=== PATIENT | female | born 1990 | race Caucasian/White ===

== ENCOUNTER 2017-05-14 11:24 | Outpatient (CLI) | payer BC ==
--- NOTE | 2017-05-14 13:08 | Progress Note ---
Progress Note Date of Service May 14, 2017. Progress Note Outpatient note 27 F P2002 at 34.6 weeks seen in office today with normal visit and found to have irregular contractions. Sent over for monitoring. Cervix is 1-2/40/-3/ posterior/firm. FHT Cat 1. contractions are every 3-4 irregular. No bleeding or leakage of fluid. No history of recent trauma or falls. No history of any labor with other pregnancies. Will give Brethine 0.25 mg Sub-Q to try and stop contractions.
[2017-05-14] MEDS ORDERED: TERBUTALINE SULFATE 1 MG/ML VIAL ONE (13:10)
[2017-05-14] MEDS ORDERED: TERBUTALINE SULFATE 1 MG/ML VIAL SQ PRN (13:15)
--- NOTE | 2017-05-14 14:12 | Progress Note ---
Progress Note Date of Service May 14, 2017. Progress Note no further contractions will discharge home not in labor FHT Cat 1 follow up in office
== END 2017-05-14 14:20 | disposition home or self-care (01) ==
LOC: C.LD 11:24 → C.OPB 11:24
PROVIDERS: ATTEND Obstetrics & Gynecology
DX: O62.9 Abnormality of forces of labor, unspecified (principal); Z3A.34 34 weeks gestation of pregnancy

== ENCOUNTER 2017-06-05 13:48 | Outpatient (CLI) | payer BC ==
[~2017-06-05] VITALS: Ht 154.9 cm; Wt 96.2 kg
--- NOTE | 2017-06-05 14:45 | Progress Note ---
Progress Note Date of Service Jun 05, 2017. Progress Note Pt seen and evaluated for dec FM EGA 38 + week NST is CAT1 ot is reassured and disch home with instructions
--- NOTE | 2017-06-05 14:47 | Discharge Instructions ---
Discharge Instructions Date of Service Jun 05, 2017. Admission Reason for Admission: Mucus Discharge,Cramping Discharge Discharge Diagnosis / Problem: decrease movement Discharge Goals Goal(s): Continuing OB care Activity Recommendations Activity Limitations: as noted below SPECIAL CARE INSTRUCTIONS: Call Doctor if: * Regular contractions every 5 minutes or greater than contractions in one hour. * Bleeding * Water breaks or is leaking * Decreased movement * Fever >100.4 degrees F * Pain not relieved by routine measures or pain medication ordered. FOLLOW UP VISIT: Return to Labor and Delivery on for /call for appointment time . Follow-up Visit with: When: . Current Hospital Diet Patient's current hospital diet: Discharge Diet Recommended Diet: Regular Diet Pending Studies Studies pending at discharge: no Medical Emergencies . Who to Call and When: Medical Emergencies: If at any time you feel your situation is an emergency, please call 911 immediately. . Non-Emergent Contact Non-Emergency issues call your: Specialist . . "Provider Documentation" section prepared by Bubba Esteban. .
[2017-06-05 15:26] VITALS: Ht 154.9 cm; Wt 96.2 kg
[2017-06-05] MEDS ORDERED: PRENTAB26 PO (15:26)
[2017-06-05] MEDS ORDERED: POTA8CAP6 PO (15:26)
== END 2017-06-05 14:48 | disposition home or self-care (01) ==
LOC: C.OPB 13:48 → C.LD 13:49 → C.OPB 14:48
PROVIDERS: ATTEND Obstetrics & Gynecology
DX: O36.8130 Decreased fetal movements, third trimester, not applicable or unspecified (principal); O26.893 Other specified pregnancy related conditions, third trimester; N89.8 Other specified noninflammatory disorders of vagina; Z3A.38 38 weeks gestation of pregnancy

== ENCOUNTER 2019-09-05 19:42 | Observation (INO) ==
[2019-09-05] MEDS ORDERED: ONDANSETRON INJ 2 MG/ML 2 ML VIAL IV PRN (20:11)
[2019-09-05] MEDS ORDERED: LACTATED RINGER'S 1,000 ML IV ONE (20:11)
[2019-09-05] MEDS ORDERED: OXYTOCIN 30 UNITS/500 ML BAG IV PRN (20:11)
[2019-09-05] MEDS ORDERED: LACTATED RINGER'S 1,000 ML IV PRN ×2 (20:11)
[2019-09-05] MEDS ORDERED: BETAMETH SOD PHOS/ACETATE IA 6 MG/ML IM STA (20:14)
[2019-09-05] MEDS ORDERED: NIFEdipine 10 MG CAP PO STA ×2 (20:14→21:49)
--- NOTE | 2019-09-05 20:29 | History & Physical Report ---
Date of Service September 05, 2019 Assessment & Plan (1) uterine contractions in third trimester, antepartum: 29 yo at 34.2 wks with contractions and cervical dilatation and effacement VSS Afebrile FHR reassuring Discussed with her and aviation electrical technician in the room and possibility of going into active labor and baby might be transferred to [facility] [place] She desires to be transferred now before she would go into active labor Plan observe, monitor, IVF bolus, Procardia PO now, Celestone and transfer to [facility] Discussed with Dr Mock, manager distribution OB at [facility] L&D Accepted transfer (2) Type 2 diabetes mellitus affecting in second trimester, antepartum: History of Present Illness Primary Care Provider: Willie Newsomep Patient is a 29 yo at 34.2 wks who has been feeling contractions since 09/02 They stopped yesterday and started this afternoon They have been getting more regular and painful, every 3-4 min No LOF/VB +FM's No VB/LOF/ Vaginal d/c, itching No fever/ chills/ N&V/ Dysuria/ problems with BM Her has been complicated by 1) Pre existing Type II DM, on insulin and Metformin 2) Class II Obesity 3) Smoker 4) h/o C section Allergies Allergy/AdvReac Type Severity Reaction Status Date / Time No Known Allergies Allergy Unverified 06/05/17 15:24 Home Medications Home Medications Medication Instructions Recorded Confirmed Type Multivit/Min/Iron/Fol Ac/Pren 1 tab PO DAILY #0 tab 06/05/17 History ( Vitamin) Potassium Chloride (Klor-Con Ext 8 meq PO DAILY #0 cap 06/05/17 History Rel) Patient History Social History Preferred Language: Maltese marital status: Feels Safe at Home: Yes Safety Concerns: Feels Safe At This Time Smoking Status: Current every day smoker Tobacco Type: cigarettes ; Cigarettes Per Day: 10 ; Do You Dip or Chew Tobacco: No ; Second Hand Exposure: Yes ; Hx Alcohol Use: No Hx Substance Use: No OB History 2012: JOCELYN JUDGE 2013: JOCELYN JUDGE 2017: SAB 2018: Primary Csecton for breech GLOBAL COORDINATOR History No h/o STD's Review of Systems All systems reviewed & are unremarkable except as noted in HPI & below Physical Exam Constitutional: WD/WN, vitals as above well developed, well nourished, + acute distress (uncomfortable with ctxs) and + obese Gastrointestinal (Abdomen): Abd: soft, ctxs every 2-3 min Genitourinary: normal external appearance OB Exam Abdomen: + regular contractions Manual OB Exam: + cervical dilation (2-3 cm) 2 cm, + cervical effacement 80% and + station -2 OB Exam Monitor Tracing: + external FHT monitor used and + category I Results & Data Vital Signs (Past 12 Hours) Vital Signs Pulse BP 09/05/19 20:14 75 136/73
[2019-09-05 20:37] LABS: Basophils # (auto) 0.02 K/uL (0-0.2); Basophils % (auto) 0.1 %; Eosinophils # (auto) 0.08 K/uL (0-0.5); Eosinophils % (auto) 0.5 %; Hematocrit (blood only) 35.1 % (37-47); Hemoglobin 12.3 g/dL (12.0-16.0); Immature Granulocytes # (auto) 0.05 K/uL (0.00-0.02); Immature Granulocytes % (auto) 0.3 %; Lymphocytes # (auto) 3.19 K/uL (1.2-3.4); Lymphocytes % (auto) 20.5 %; Mean Corpuscular Hemoglobin 30.1 pg (25-34); Mean Platelet Volume 11.3 fL (7.4-10.4); Monocytes # (auto) 0.84 K/uL (0.11-0.59); Monocytes % (auto) 5.4 %; Neutrophils # (auto) 11.41 K/uL (1.4-6.5); Neutrophils % (auto) 73.2 %; Platelet Count 200 K/uL (130-400); RDW Coefficient of Variation 13.5 % (11.5-14.5); RDW Standard Deviation 42.1 fL (36.4-46.3); Red Blood Count 4.08 M/uL (4.2-5.4); White Blood Count 15.59 K/uL (4.8-10.8)
[2019-09-05 20:46] LABS: Appearance Urine Clear (Clear); Bilirubin Urine Negative (Negative); Blood Urine Negative (Negative); Color Urine Yellow; Glucose Urine UA Negative (Negative); Ketones Urine Negative (Negative); Leukocyte Esterase Urine Negative (Negative); Nitrite Urine Negative (Negative); Protein Urine Negative (Negative); Specific Gravity Urine 1.008 (1.000-1.030); Urobilinogen Urine Negative (Negative); pH Urine 7.5 (4.5-7.5)
[2019-09-05 21:03] LABS: BUN Creatinine Ratio 12.8 (10-20); Calcium 10.6 mg/dl (8.5-10.1); Creatinine Clr Calc Pharmacy 132.9 ml/min; Est GFR (African American) 139.8; Est GFR (Non-African American) 120.6; Potassium 2.7 mmol/L (3.5-5.1)
--- NOTE | 2019-09-05 21:52 | Obstetrical Progress Note ---
Date of Service September 05, 2019 Assessment & Plan Admission and Anticipated Discharge Date Admission Date: September 05, 2019 Subjective Patient is reevaluated She feels better but still has ctxs on and off, not sure how often She received IVF bolus and 20 mg of PO Procardia and Celestone Lab Results 09/05/19 09/05/19 09/05/19 Range/Units 20:25 20:25 Unknown WBC 15.59 H (4.8-10.8) K/uL RBC 4.08 L (4.2-5.4) M/uL Hgb 12.3 (12.0-16.0) g/dL Hct 35.1 L (37-47) % MCV 86.0 (80-100) fL MCH 30.1 (25-34) pg MCHC 35.0 (32-36) g/dL RDW Std Deviation 42.1 (36.4-46.3) fL RDW Coeff of Maureen 13.5 (11.5-14.5) % Plt Count 200 (130-400) K/uL MPV 11.3 H (7.4-10.4) fL Immature Gran % (Auto) 0.3 % Neut % (Auto) 73.2 % Lymph % (Auto) 20.5 % [place] % (Auto) 5.4 % Eos % (Auto) 0.5 % Baso % (Auto) 0.1 % Immature Gran # (Auto) 0.05 H (0.00-0.02) K/uL Neut # (Auto) 11.41 H (1.4-6.5) K/uL Lymph # (Auto) 3.19 (1.2-3.4) K/uL [place] # (Auto) 0.84 H (0.11-0.59) K/uL Eos # (Auto) 0.08 (0-0.5) K/uL Baso # (Auto) 0.02 (0-0.2) K/uL Sodium 138 (136-145) mmol/L Potassium 2.7 L (3.5-5.1) mmol/L Chloride 106 (98-107) mmol/L Carbon Dioxide 26 (21-32) mmol/L Anion Gap 6.0 (3-11) BUN 8 (7-18) mg/dl Creatinine 0.64 (0.6-1.2) mg/dl Est Cr Clr Drug Dosing 132.9 ml/min Est GFR ( Amer) 139.8 Est GFR (Non-Af Amer) 120.6 BUN/Creatinine Ratio 12.8 (10-20) Glucose 98 (70-99) mg/dl Calcium 10.6 H (8.5-10.1) mg/dl Urine Color Yellow Urine Appearance Clear (Clear) Urine pH 7.5 (4.5-7.5) Ur Specific [place] 1.008 (1.000-1.030) Urine Protein Negative (Negative) Urine Glucose (UA) Negative (Negative) Urine Ketones Negative (Negative) Urine Blood Negative (Negative) Urine Nitrite Negative (Negative) Urine Bilirubin Negative (Negative) Urine Urobilinogen Negative (Negative) Ur Leukocyte Esterase Negative (Negative) FHR 130's, reactive [place]: unable to monitor contractions Plan to repeat 1 more dose of Procardia and continue to monitor Results & Data ([facility] [place]) Vital Signs (Past 12 Hours) Vital Signs Temp Pulse Resp BP 09/05/19 21:44 87 137/74 09/05/19 21:29 85 138/74 09/05/19 21:14 88 125/60 09/05/19 20:59 76 141/75 H 09/05/19 20:45 72 138/65 09/05/19 20:14 75 136/73 09/05/19 20:10 36.9 C 75 18 136/73
--- NOTE | 2019-09-09 01:30 | Discharge Summary (DS) ---
DETAILS OF ADMISSION: The patient is a 29-year-old G5, P3-0-1-3 at 34 weeks and 2 days of gestation. She presented to labor and delivery with contractions and cervical dilatation and effacement. She was having contractions for the last few hours and they were getting more intense and painful. When she presented to labor and delivery, her cervix was 2-3 cm dilated, 80% effaced, -3 station. She was having regular contractions which were painful. She was started on IV fluid bolus and p.o. Procardia. Her contractions slowed down. She was given one dose of Celestone and the canal lock tender chief operator instructional technology coordinator discussed the risks of labor here and possibility of transferring to NICU. She wanted to be transferred to tertiary care center, [facility]. Transfer was arranged through [facility]. On the discharge, her cervix was unchanged, her contractions were minimal, and heart rate was reassuring. She was transferred with an ambulance with her nurse on 09/05/2019 evening. TE
== END 2019-09-05 23:05 | disposition short-term general hospital (02) ==
LOC: OPB 19:42 → 4S2 19:42 → 4S1 19:43 → 4S2 20:02

== ENCOUNTER 2020-07-12 13:44 | Inpatient (IN) ==
[2020-07-12] MEDS ORDERED: ONDANSETRON INJ 2 MG/ML 2 ML VIAL IV STA (14:21)
[2020-07-12] MEDS ORDERED: SODIUM CHLORIDE 0.9% 1000ML 1,000 ML IV STA (14:21)
[2020-07-12] MEDS ORDERED: ACETAMINOPHEN 1,000 MG/100 ML VIAL IV STA (14:21)
--- NOTE | 2020-07-12 14:34 | Emergency Department Note ---
Impression & Plan Left flank pain, Hydronephrosis, Hypokalemia, Hypomagnesemia, ED Provider Note CHIEF COMPLAINT: Left flank pain HISTORY OF PRESENTING ILLNESS: This is a 30-year-old female who presents to the emergency department by private vehicle with complaint of left flank pain that started last night and got progressively worse today. Patient states the pain starts in her left middle back and radiates around to the front of her stomach. Pain is constant, sharp and stabbing, and she rates the pain 10/10. She took Tylenol last night with minimal relief of the pain. Patient is currently 30 weeks , she is G5, P4. She went to see her [employer] today and they checked to make sure she was not in labor. They sent her here to be evaluated for possible kidney stone. Patient denies any history of kidney stones. She does not know anything about her family history because she was adopted. She notes some urinary pressure, but denies any dysuria, urinary frequency or hesitancy, or hematuria. She denies any fevers or chills. She has had some associated nausea and vomiting. She denies chest pain, chest tightness, shortness of breath, dizziness or syncope. She is feeling the baby move normally. She denies any vaginal bleeding or discharge. REVIEW OF SYSTEMS: A complete 10 point review of systems was reviewed with the patient with pertinent positives and negatives as per history of present illness. All else were negative. PAST MEDICAL HISTORY: Type 2 diabetes SOCIAL HISTORY: Lives at home, she is a current every day smoker ALLERGIES: No known allergies PHYSICAL EXAM: CONSTITUTIONAL: Pleasant and cooperative. Nontoxic-appearing and in no acute distress, but appears uncomfortable from pain. Mildly dehydrated, but otherwise well appearing and well nourished. HEENT: Normocephalic, atraumatic. Pharynx normal. Tacky mucous membranes. NECK: Supple, full active range of motion without discomfort. RESPIRATORY: Clear to auscultation bilaterally with no wheezing, crackles, rhonchi or stridor. Equal expansion bilaterally. CARDIOVASCULAR: Regular rate and rhythm with no murmurs, rubs or gallops. Normal peripheral perfusion. No edema. GASTROINTESTINAL: Tender to palpation in the left mid abdomen, soft. Gravid abdomen. Bowel sounds present in all quadrants. Left-sided CVA tenderness to percussion, no right-sided CVA tenderness. MUSCULOSKELETAL: Full range of motion of all joints without discomfort. INTEGUMENTARY: No rash or other significant dermatologic conditions noted. NEUROLOGIC: Alert and oriented X 4 with normal affect. Normal strength and sen sation in all 4 extremities. Normal speech. Normal gait observed. ED COURSE AND MEDICAL DECISION MAKING: CC: Patient presenting with complaint of left flank pain DIFFERENTIAL DIAGNOSIS: Includes, but not limited to ureteral stone, UTI, pyelonephritis, premature labor, [place] Pat[place], pancreatitis, diverticulitis, small bowel obstruction, gastroenteritis, infectious colitis, dehydration, among others. INTERPRETATION OF LABS: Significant leukocytosis with left shift, mild anemia, normal platelets, hypokalemia and hypomagnesemia, no other significant electrolyte abnormalities, normal renal function, normal liver enzymes and lipase. UA shows 3+ ketones and appears contaminated with large epithelial cells though 1+ bacteria, urine culture is pending. IMAGING: RENAL ULTRASOUND CLINICAL HISTORY: left flank pain, + preg, eval stone COMPARISON STUDY: None. TECHNIQUE: Sonography of the kidneys and the urinary bladder was performed. FINDINGS: Right kidney measures 12.8 x 5.2 x 6.6 cm and the left measures 13.7 x 6.8 x 6.8 cm. There is mild to moderate left hydronephrosis. There is mild right collecting system dilatation. Note is made of a 1.7 cm left renal cyst. There is a probable 4 mm right renal calculus. Right ureteral jet was visualized. The left ureteral jet was not identified. Incidental note is made of gallstones within the gallbladder without gallbladder wall thickening. IMPRESSION: 1. Mild to moderate left hydronephrosis which may be due to to mass effect upon the ureter by the gravid uterus or occult ureteral calculus. Mild right collecting system dilatation. 2. Probable small right renal calculus. 3. Cholelithiasis. No evidence for acute cholecystitis. MEDICATION RECONCILIATION: I attest that I have personally reviewed the patient's current medication list. INITIAL VITAL SIGNS REVIEW: I reviewed the patient's initial vital signs and interpret them as follows: T: Afebrile; BP: Normotensive; HR: Mildly tachycardic; RR: Within normal limit; Pulse Ox: Within normal limits on room air. MDM SUMMARY: Patient was evaluated at bedside, history and physical exam performed. Patient is alert and oriented, in no acute distress, resting calmly in stretcher. She does appear to be uncomfortable from pain. She is tender to palpation of the left flank and left mid abdomen, no acute abdomen. She is afebrile and nontoxic-appearing, but appears mildly dehydrated clinically. Cardiac monitoring: An order was placed for continuous cardiac monitoring. The monitor shows a rate of 102 bpm with sinus tachycardia rhythm. heart tones performed, 132 bpm. The patient is feeling the baby move normally. Orders were placed for labs, UA, IV fluid bolus for hydration, IV Tylenol for pain, IV Zofran for nausea, renal ultrasound to evaluate for possible ureteral stone or kidney infection. Patient discussed with Dr. Quesada, who agrees with my assessment, plan, and disposition. Labs and imaging reviewed as above, labs are concerning for significant leukocytosis with left shift, in the setting of acute flank pain and , I am worried she may have developing pyelonephritis. Urinalysis appeared somewhat contaminated though there was 1+ bacteria, a urine culture is pending. Patient was treated with 2 g IV Rocephin empirically. She was also noted to have hypokalemia, repletion was started with 20 mEq IV over 2 hours. Ultrasound did show moderate left hydronephrosis without a definite ureteral calculus seen. I spoke on the phone with Dr. Alegria [facility] [employer], who agreed that the patient should be admitted for the possible pyelonephritis. She requested that the patient be admitted to the hospitalist service and she will continue to consult for the patient's OB care. I spoke on the phone with Macarena Flores PA-C with the hospitalist group, who agreed to evaluate the patient for admission. A COVID-19 test was ordered and is negative. Patient reassessed multiple times throughout ED stay, she has remained hemodyn amically stable and afebrile, her tachycardia is downtrending with IV fluids and she reports her pain and nausea are significantly improved after the Tylenol and Zofran. The patient was updated on all results and plan for admission, all questions were answered to the best of my ability at this time and the patient was agreeable to this plan. The patient was stable at time of admission. The chart was completed utilizing re3D voice recognition software. Grammatical errors, random word insertions, pronoun errors, and incomplete sentences are an occasional consequence of this system due to software limitations, ambient noise, and hardware issues. Any formal questions or concerns about the content, text, or information contained within the body of this dictation should be directly addressed to the nurse practitioner for clarification. Past Med/Surg History Medical History (Updated 07/12/20 @ 20:26 by MADY Goodman) Diabetes mellitus, type II Gestational diabetes Obesity Surgical History History of Family History Other Family history unknown Social History Smoking Status: Smoker, status unknown Tobacco Type: Cigarettes Cigarettes Per Day: 10; Second Hand Exposure: No; Do You Dip or Chew Tobacco: No; Hx Alcohol Use: No Hx Substance Use: No Preferred Language: Italian Communication Ability: Effective Research Analyst Required: No Beliefs That Will Affect Care: None marital status: Current Living Situation: Alone and Family Other Information That Helps Us Care for You: No Feels Safe at Home: Yes Safety Concerns: Feels Safe At This Time Assistive Devices: None Allergies Allergies Allergy/AdvReac Type Severity Reaction Status Date / Time No Known Allergies Allergy Verified 07/12/20 15:21 Home Meds Home Medications Medication Instructions Recorded Confirmed vit [id number] 800 tab PO DAILY 09/05/19 07/12/20 [ Vitamin] insulin aspart U-100 [Novolog 11 unit SUBCUT .BEFORE DINNER 07/12/20 07/12/20 Flexpen U-100 Insulin] insulin glargine [Lantus Solostar 37 unit SUBCUT HS 07/12/20 07/12/20 U-100 Insulin] Results & Data (ED) Vital Signs Vital Signs - 24 hr 07/12/20 13:52 07/12/20 14:46 07/12/20 15:51 Temperature 36.4 C L Temperature Source Oral Pulse Rate 108 H 100 H Pulse Rate [Left Finger] 88 Pulse Rhythm Regular Respiratory Rate 18 20 Blood Pressure 128/79 Blood Pressure [Left Arm] 126/68 Blood Pressure Mean 95 Blood Pressure Mean [Left Arm] 87 Pulse Oximetry 97 96 Oxygen Delivery Method Room Air Room Air Room Air Sepsis Recent Fever Within 48 Hours No Sepsis New/Unexplained Change in Mental Status No Sepsis Action Taken by Nursing No Action Required Laboratory Data Result diagrams: 07/12/20 14:28 07/12/20 14:28 Lab Results 07/12/20 07/12/20 07/12/20 Range/Units 14:28 14:28 14:38 WBC 24.82 H (4.8-10.8) K/uL RBC 3.73 L (4.2-5.4) M/uL Hgb 11.6 L (12.0-16.0) g/dL Hct 31.8 L (37-47) % MCV 85.3 (80-100) fL MCH 31.1 (25-34) pg MCHC 36.5 H (32-36) g/dL RDW Std Deviation 41.7 (36.4-46.3) fL RDW Coeff of Maureen 13.5 (11.5-14.5) % Plt Count 178 (130-400) K/uL MPV 11.0 H (7.4-10.4) fL Immature Gran % (Auto) 0.3 % Neut % (Auto) 87.3 % Lymph % (Auto) 6.6 % [place] % (Auto) 5.7 % Eos % (Auto) 0.1 % Baso % (Auto) 0.0 % Neut # (Auto) 21.65 H (1.4-6.5) K/uL Lymph # (Auto) 1.64 (1.2-3.4) K/uL [place] # (Auto) 1.41 H (0.11-0.59) K/uL Eos # (Auto) 0.03 (0-0.5) K/uL Baso # (Auto) 0.01 (0-0.2) K/uL Immature Gran # (Auto) 0.08 H (0.00-0.02) K/uL Sodium 139 (136-145) mmol/L Potassium 2.7 L (3.5-5.1) mmol/L Chloride 107 (98-107) mmol/L Carbon Dioxide 23 (21-32) mmol/L Anion Gap 9.0 (3-11) BUN 10 (7-18) mg/dl Creatinine 0.86 (0.6-1.2) mg/dl Est Cr Clr Drug Dosing 95.9 ml/min Est GFR ( Amer) 105.1 Est GFR (Non-Af Amer) 90.7 BUN/Creatinine Ratio 11.8 (10-20) Glucose 84 (70-99) mg/dl Calcium 8.5 (8.5-10.1) mg/dl Magnesium 1.6 L (1.8-2.4) mg/dl Total Bilirubin 0.5 (0.2-1) mg/dl AST 13 L (15-37) U/L ALT 17 (12-78) U/L Alkaline Phosphatase 98 (45-117) U/L Total Protein 6.6 (6.4-8.2) gm/dl Albumin 2.5 L (3.4-5.0) gm/dl Globulin 4.1 H (2.5-4.0) gm/dl Albumin/Globulin Ratio 0.6 L (0.9-2) Lipase 84 (73-393) U/L Urine Color Yellow Urine Appearance Clear (Clear) Urine pH 7.0 (4.5-7.5) Ur Specific [place] 1.016 (1.000-1.030) Urine Protein Trace H (Negative) Urine Glucose (UA) Negative (Negative) Urine Ketones 3+ H (Negative) Urine Blood Trace H (Negative) Urine Nitrite Negative (Negative) Urine Bilirubin Negative (Negative) Urine Urobilinogen Negative (Negative) Ur Leukocyte Esterase Trace H (Negative) Urine WBC (Auto) 5-10 H (0-5) /hpf Urine RBC (Auto) 5-10 H (0-4) /hpf U Hyaline Cast (Auto) 1-5 (0-5) /lpf U Epithel Cells (Auto) >30 H (0-5) /lpf Urine Bacteria (Auto) 1+ H (Negative) COVID-19 Eval Order SARS-CoV-2 (PCR) (Negative) Influenza Type A (PCR) (Neg) Influenza Type B (PCR) (Neg) RSV (RT-PCR) (Neg) 07/12/20 07/12/20 Range/Units 16:34 16:34 WBC (4.8-10.8) K/uL RBC (4.2-5.4) M/uL Hgb (12.0-16.0) g/dL Hct (37-47) % MCV (80-100) fL MCH (25-34) pg MCHC (32-36) g/dL RDW Std Deviation (36.4-46.3) fL RDW Coeff of Maureen (11.5-14.5) % Plt Count (130-400) K/uL MPV (7.4-10.4) fL Immature Gran % (Auto) % Neut % (Auto) % Lymph % (Auto) % [place] % (Auto) % Eos % (Auto) % Baso % (Auto) % Neut # (Auto) (1.4-6.5) K/uL Lymph # (Auto) (1.2-3.4) K/uL [place] # (Auto) (0.11-0.59) K/uL Eos # (Auto) (0-0.5) K/uL Baso # (Auto) (0-0.2) K/uL Immature Gran # (Auto) (0.00-0.02) K/uL Sodium (136-145) mmol/L Potassium (3.5-5.1) mmol/L Chloride (98-107) mmol/L Carbon Dioxide (21-32) mmol/L Anion Gap (3-11) BUN (7-18) mg/dl Creatinine (0.6-1.2) mg/dl Est Cr Clr Drug Dosing ml/min Est GFR ( Amer) Est GFR (Non-Af Amer) BUN/Creatinine Ratio (10-20) Glucose (70-99) mg/dl Calcium (8.5-10.1) mg/dl Magnesium (1.8-2.4) mg/dl Total Bilirubin (0.2-1) mg/dl AST (15-37) U/L ALT (12-78) U/L Alkaline Phosphatase (45-117) U/L Total Protein (6.4-8.2) gm/dl Albumin (3.4-5.0) gm/dl Globulin (2.5-4.0) gm/dl Albumin/Globulin Ratio (0.9-2) Lipase (73-393) U/L Urine Color Urine Appearance (Clear) Urine pH (4.5-7.5) Ur Specific [place] (1.000-1.030) Urine Protein (Negative) Urine Glucose (UA) (Negative) Urine Ketones (Negative) Urine Blood (Negative) Urine Nitrite (Negative) Urine Bilirubin (Negative) Urine Urobilinogen (Negative) Ur Leukocyte Esterase (Negative) Urine WBC (Auto) (0-5) /hpf Urine RBC (Auto) (0-4) /hpf U Hyaline Cast (Auto) (0-5) /lpf U Epithel Cells (Auto) (0-5) /lpf Urine Bacteria (Auto) (Negative) COVID-19 Eval Order CovFluRsv at [facility] SARS-CoV-2 (PCR) NEGATIVE (Negative) Influenza Type A (PCR) Negative (Neg) Influenza Type B (PCR) Negative (Neg) RSV (RT-PCR) Negative (Neg) Administered Medications Discontinued Medications Sodium Chloride (Nss 1000ml) 1,000 mls @ 999 mls/hr IV .[id number] STA Stop: 07/12/20 15:21 Last Infusion: 07/12/20 15:19 Dose: 0 mls/hr Documented by: [id number] Admin: 07/12/20 14:38 Dose: 999 mls/hr Documented by: [id number] Acetaminophen (Ofirmev) 1,000 mg in 100 mls @ 400 mls/hr IV NOW STA Stop: 07/12/20 14:35 Last Infusion: 07/12/20 15:00 Dose: 0 mls/hr Documented by: [id number] Admin: 07/12/20 14:38 Dose: 400 mls/hr Documented by: [id number] Ceftriaxone Sodium (Rocephin) 2,000 mg in 70 mls @ 140 mls/hr IV NOW STA Stop: 07/12/20 16:09 Last Infusion: 07/12/20 16:52 Dose: 0 mls/hr Documented by: [id number] Admin: 07/12/20 16:10 Dose: 140 mls/hr Documented by: [id number] Potassium Chloride (K Valente / Wtr) 10 meq in 100 mls @ 100 mls/hr IV Q1H VÍCTOR Stop: 07/12/20 17:44 Last Infusion: 07/12/20 17:57 Dose: 0 mls/hr Documented by: [id number] Admin: 07/12/20 17:04 Dose: 100 mls/hr Documented by: [id number] Infusion: 07/12/20 17:03 Dose: 0 mls/hr Documented by: [id number] Admin: 07/12/20 16:01 Dose: 100 mls/hr Documented by: [id number] Magnesium Sulfate/Dextrose (Magnesium Sulfate / D5w) 1 gm in 100 mls @ 50 mls/hr IV ONE ONE Stop: 07/12/20 19:49 Last Admin: 07/12/20 17:58 Dose: 50 mls/hr Documented by: [id number] Ondansetron HCl (Ondansetron Inj 2 Mg/Ml 2 Ml Vial) 4 mg IV NOW STA Stop: 07/12/20 14:22 Last Admin: 07/12/20 14:38 Dose: 4 mg Documented by: [id number] Potassium Chloride (Potassium Chloride Crtab 20 Meq Tabcr) 40 meq PO NOW STA Stop: 07/12/20 17:12 Last Admin: 07/12/20 17:38 Dose: 40 meq Documented by: [id number] Imaging Data Radiologist's Impression: Renal Ultrasound 07/12/20 14:21 RENAL ULTRASOUND CLINICAL HISTORY: left flank pain, + preg, eval stone COMPARISON STUDY: None. TECHNIQUE: Sonography of the kidneys and the urinary bladder was performed. FINDINGS: Right kidney measures 12.8 x 5.2 x 6.6 cm and the left measures 13.7 x 6.8 x 6.8 cm. There is mild to moderate left hydronephrosis. There is mild right collecting system dilatation. Note is made of a 1.7 cm left renal cyst. There is a probable 4 mm right renal calculus. Right ureteral jet was visualized. The left ureteral jet was not identified. Incidental note is made of gallstones within the gallbladder without gallbladder wall thickening. IMPRESSION: 1. Mild to moderate left hydronephrosis which may be due to to mass effect upon the ureter by the gravid uterus or occult ureteral calculus. Mild right collecting system dilatation. 2. Probable small right renal calculus. 3. Cholelithiasis. No evidence for acute cholecystitis. ACT 112: Negative or not required by law. Electronically signed by: Joao Whatley M.D. 07/12/2020 3:35 PM Discharge Plan Visit Data Chief Complaint: Back Injury/Pain Stated Complaint: BACK LOWER LEFT PAIN, LEFT SIDE ABD PAIN, 30WK PRE ED Provider: Matthew Quesada ED Midlevel Provider: Miracle Culp Discharge Problem: Left flank pain, Hydronephrosis, Hypokalemia, Hypomagnesemia, Patient Disposition: Admitted As Inpatient Discharge Instructions Interventions: ED Discharge Assessment Last Done: 07/12/20 17:59 Discharge Problem: Hydronephrosis Qualifiers: Hydronephrosis type: unspecified Qualified Code(s): N13.30 - Unspecified hydr onephrosis Qualifiers: Weeks of gestation: 30 weeks Qualified Code(s): Z3A.30 - 30 weeks gestation of
[2020-07-12 14:44] LABS: Hematocrit (blood only) 31.8 % (37-47); Hemoglobin 11.6 g/dL (12.0-16.0); Mean Corpuscular Hemoglobin 31.1 pg (25-34); Mean Corpuscular Hgb Conc 36.5 g/dL (32-36); Mean Corpuscular Volume 85.3 fL (80-100); Platelet Count 178 K/uL (130-400); RDW Coefficient of Variation 13.5 % (11.5-14.5); RDW Standard Deviation 41.7 fL (36.4-46.3); Red Blood Count 3.73 M/uL (4.2-5.4); White Blood Count 24.82 K/uL (4.8-10.8)
[2020-07-12 14:59] LABS: Appearance Urine Clear (Clear); Bacteria Urine Automated 1+ (Negative); Bilirubin Urine Negative (Negative); Blood Urine Trace (Negative); Color Urine Yellow; Epithelial Cell Urine Auto >30 /lpf (0-5); Glucose Urine UA Negative (Negative); Ketones Urine 3+ (Negative); Leukocyte Esterase Urine Trace (Negative); Nitrite Urine Negative (Negative); Protein Urine Trace (Negative); Specific Gravity Urine 1.016 (1.000-1.030); Urobilinogen Urine Negative (Negative)
[2020-07-12 15:00] LABS: Albumin Level 2.5 gm/dl (3.4-5.0); BUN Creatinine Ratio 11.8 (10-20); Calcium 8.5 mg/dl (8.5-10.1); Creatinine Clr Calc Pharmacy 95.9 ml/min; Est GFR (African American) 105.1; Est GFR (Non-African American) 90.7; Potassium 2.7 mmol/L (3.5-5.1)
[2020-07-12 15:03] LABS: Albumin Globulin Ratio 0.6 (0.9-2); Bilirubin,Total 0.5 mg/dl (0.2-1); Globulin 4.1 gm/dl (2.5-4.0); Total Protein 6.6 gm/dl (6.4-8.2)
[2020-07-12 15:07] LABS: Basophils # (auto) 0.01 K/uL (0-0.2); Eosinophils # (auto) 0.03 K/uL (0-0.5); Eosinophils % (auto) 0.1 %; Immature Granulocytes # (auto) 0.08 K/uL (0.00-0.02); Immature Granulocytes % (auto) 0.3 %; Lymphocytes # (auto) 1.64 K/uL (1.2-3.4); Lymphocytes % (auto) 6.6 %; Monocytes # (auto) 1.41 K/uL (0.11-0.59); Monocytes % (auto) 5.7 %; Neutrophils # (auto) 21.65 K/uL (1.4-6.5); Neutrophils % (auto) 87.3 %
--- NOTE | 2020-07-12 15:36 | Ultrasound Report ---
RENAL ULTRASOUND CLINICAL HISTORY: left flank pain, + preg, eval stone COMPARISON STUDY: None. TECHNIQUE: Sonography of the kidneys and the urinary bladder was performed. FINDINGS: Right kidney measures 12.8 x 5.2 x 6.6 cm and the left measures 13.7 x 6.8 x 6.8 cm. There is mild to moderate left hydronephrosis. There is mild right collecting system dilatation. Note is ma de of a 1.7 cm left renal cyst. There is a probable 4 mm right renal calculus. Right ureteral jet was visualized. The left ureteral jet was not identified. Incidental note is made of gallstones within t he gallbladder without gallbladder wall thickening. IMPRESSION: 1. Mild to moderate left hydronephrosis which may be due to to mass effect upon the ureter by the gra vid uterus or occult ureteral calculus. Mild right collecting system dilatation. 2. Probable small right renal calculus. 3. Cholelithiasis. No evidence for acute cholecystitis. ACT 112: Negative or not required by law. Electronically signed by: Joao Whatley M.D. 07/12/2020 3:35 PM
[2020-07-12] MEDS ORDERED: cefTRIAXone SODIUM 2,000 MG/70 ML BAG IV STA (15:40)
[2020-07-12] MEDS: POTASSIUM CHLORIDE / WTR 10 MEQ/100 ML PLCT IV SCH ×2 (16:01→17:04)
[2020-07-12 16:51] LABS: Magnesium 1.6 mg/dl (1.8-2.4)
--- NOTE | 2020-07-12 17:01 | History & Physical Report ---
Date of Service July 12, 2020 Assessment & Plan (1) Left flank pain: (2) Hydronephrosis: Possible renal colic Possible UTI Pt is 30 y/o F with PMH DM II, obesity, currently 30 weeks gestation, presented to ER with c/o Left flank pain since last night. Nausea, one episode of vomiting. Denies fever, dysuria, hematuria, vaginal discharge/bleeding. Evaluated OBGYN outpatient prior to arrival and no signs pre-term labor In ER afebrile, WBC: 24. UA: trace blood, trace leuk esterase, 1+bacteria, >30 epithelial Renal US: Mild to moderate left hydronephrosis which may be due to to mass effect upon the ureter by the gravid uterus or occult ureteral calculus. Mild right collecting system dilatation. Probable small right renal calculus. In ER given Rocephin, zofran, IV Tylenol, 1L NSS. Pt reports no further flank pain -Urine culture, blood culture pending -Strain all urine -IVF -Rocephin -IV Tylenol prn pain -Urology consult -CBC, BMP in am (3) : 30 weeks gestation Reports sensation movement. Denies vaginal bleeding or discharge. Was evaluated outpatient OB clinic with reported no signs pre-term labor -OBGYN consult -Continue vitamin (4) Hypokalemia: K: 2.7 -In ER given 2 K riders -Replace and monitor (5) Hypomagnesemia: Magnesium: 1.6 -Replace and monitor (6) Diabetes mellitus, type II: A1c: 5.2 in 04/26/20 -Hold home insulin -Basal bolus insulin per protocol DVT Prophylaxis -SCDs Full Code as per discussion with pt Follows with Dr Tamayo for routine care Pt was seen and care coordinated with Dr Resendiz. See addendum History of Present Illness Chief Complaint: Left flank pain Primary Care Provider: Willie Tamayo Pt is 30 y/o F with PMH DM II, obesity, currently 30 weeks gestation, gestational diabetes presented to ER with c/o Left flank pain since last night. Reports sudden onset sharp left flank pain radiating to left lower abdomen last night. Had nausea and vomited once. Feels like no fully emptying bladder when urinating the past day. Was seen outpatient at [facility] and reports no signs of pre-term labor. Pt reports this pain does not feel like prior labor pains. Denies h/o kidney stones in past. No prior treatment attempted. Did not eat or drink today. Reports feeling baby move as usual. Denies any contractions. Denies fever/chills, diaphoresis, hematemesis, diarrhea, constipation, dysuria, hematu zaheer, urinary frequency or urgency, MELCHOR, dizziness, syncope, vision changes, neck pain, CP, SOB, orthopnea, palpitations, cough, sore throat, choking, otalgia, rhinorrhea, paresthesias, weakness, extremity weakness, extremity edema, rashes, vaginal bleeding or discharge. Allergies Allergy/AdvReac Type Severity Reaction Status Date / Time No Known Allergies Allergy Verified 07/12/20 15:21 Home Medications Medication Instructions Recorded Confirmed Type vit no.[id number] 800 tab PO DAILY 09/05/19 07/12/20 History [ Vitamin] insulin aspart U-100 [Novolog 11 unit SUBCUT .BEFORE DINNER 07/12/20 07/12/20 History Flexpen U-100 Insulin] insulin glargine [Lantus Solostar 37 unit SUBCUT HS 07/12/20 07/12/20 History U-100 Insulin] Past Med/Surg History Medical History (Updated 07/12/20 @ 20:26 by MADY Goodman) Diabetes mellitus, type II Gestational diabetes Obesity Surgical History History of Family History Other Family history unknown Social History Smoking Status: Smoker, status unknown Tobacco Type: Cigarettes Cigarettes Per Day: 10; Second Hand Exposure: No; Do You Dip or Chew Tobacco: No; Hx Alcohol Use: No Hx Substance Use: No Preferred Language: Polish Communication Ability: Effective Distribution Operation Supervisor Required: No Beliefs That Will Affect Care: None marital status: Current Living Situation: Alone and Family Other Information That Helps Us Care for You: No Feels Safe at Home: Yes Safety Concerns: Feels Safe At This Time Assistive Devices: None Review of Systems Review of Systems: All systems reviewed & are unremarkable except as noted in HPI & below Physical Exam Physical Exam: General: no distress, obese Head: normocephalic, atraumatic Eyes: conjunctiva non-injected, anicteric ENT: normal inspection external ears, nose, mucous membranes moist Neck: supple, trachea midline, non-tender Lungs: clear, no respiratory distress, no wheezing/rhonchi/rales CV: RRR, no murmur, no pretibial edema Abd: +gravid uterus, normal BS, mild left CVA tenderness to palpation, otherwise abdomen non-tender to palpation at this time Ext: no cyanosis, no calf tenderness Neuro: A&O x 3, no focal deficits noted, normal affect Skin: warm, dry Results & Data Results & Data ([facility]) Vital Signs (Past 12 Hours) Vital Signs Temp Pulse Pulse Resp BP BP Pulse Ox 07/12/20 15:51 88 20 126/68 96 07/12/20 14:46 100 H 07/12/20 13:52 36.4 C L 108 H 18 128/79 97 Laboratory Results Short CBC 07/12/20 Range/Units 14:28 WBC 24.82 H (4.8-10.8) K/uL Hgb 11.6 L (12.0-16.0) g/dL Hct 31.8 L (37-47) % Plt Count 178 (130-400) K/uL BMP 07/12/20 14:28 Sodium 139 Potassium 2.7 L Chloride 107 Carbon Dioxide 23 BUN 10 Creatinine 0.86 Glucose 84 Calcium 8.5 Liver Function 07/12/20 Range/Units 14:28 Total Bilirubin 0.5 (0.2-1) mg/dl AST 13 L (15-37) U/L ALT 17 (12-78) U/L Alkaline Phosphatase 98 (45-117) U/L Albumin 2.5 L (3.4-5.0) gm/dl Urine 07/12/20 Range/Units 14:38 Urine Color Yellow Urine Appearance Clear (Clear) Urine pH 7.0 (4.5-7.5) Ur Specific [place] 1.016 (1.000-1.030) Urine Protein Trace H (Negative) Urine Glucose (UA) Negative (Negative) Diagnostic Findings Renal Ultrasound 07/12/20 14:21 RENAL ULTRASOUND CLINICAL HISTORY: left flank pain, + preg, eval stone COMPARISON STUDY: None. TECHNIQUE: Sonography of the kidneys and the urinary bladder was performed. FINDINGS: Right kidney measures 12.8 x 5.2 x 6.6 cm and the left measures 13.7 x 6.8 x 6.8 cm. There is mild to moderate left hydronephrosis. There is mild right collecting system dilatation. Note is made of a 1.7 cm left renal cyst. There is a probable 4 mm right renal calculus. Right ureteral jet was visualized. The left ureteral jet was not identified. Incidental note is made of gallstones within the gallbladder without gallbladder wall thickening. IMPRESSION: 1. Mild to moderate left hydronephrosis which may be due to to mass effect upon the ureter by the gravid uterus or occult ureteral calculus. Mild right collecting system dilatation. 2. Probable small right renal calculus. 3. Cholelithiasis. No evidence for acute cholecystitis. ACT 112: Negative or not required by law. Electronically signed by: Joao Whatley M.D. 07/12/2020 3:35 PM Code Status & VTE Plan VTE Prophylaxis Plan VTE Prophylaxis will be ordered: Yes Supervising Physician Co-Signing Physician Notes Care coordinated with Ramona Flores PA-C. Agree with above note. Patient seen and examined. Please refer to her notes for full details. Vital signs reviewed. Physical exam: General exam: Alert and oriented. Not in acute distress. CVS: S1 and S2 heard, regular rate and rhythm, no murmurs. RS: Clear to auscultation, no wheezing or crackles. ABD: Soft, bowel sounds present, mild Left CVA tenderness present. POULTRY SLAUGHTERER: Nonfocal. EXT: No edema, no erythema. Labs: Reviewed. Assessment and plan: 30 F with 30week presents with left flank pain since last night. Ultrasound showing left hydronephrosis possibly from gravid uterus or occult stone. UA psoitive for UTi. empirically started on rocephin, tylenol prn for pain. replacing potassium and magnesium. Follow labs and cultures. O FORESTRY CONSULTANT consult. Other diagnosis and plan of care as per Ramona Flores PA-C. Raghu peleltier MD.
[2020-07-12] MEDS ORDERED: POTASSIUM CHLORIDE CRTAB 20 MEQ TABCR PO STA (17:11)
[2020-07-12 17:21] LABS: Influenza A virus by PCR Negative (Neg); Influenza B virus by PCR Negative (Neg); RSV by PCR Negative (Neg); SARS CoV2 RNA(COVID-19) InHosp NEGATIVE (Negative)
[2020-07-12] MEDS ORDERED: MAGNESIUM SULFATE / D5W 1 GM/100 ML BAG IV ONE (17:50)
[2020-07-12] MEDS ORDERED: CARBOHYDRATES FOR HYPOGLYCEMIA PO PRN (18:15)
[2020-07-12] MEDS ORDERED: DEXTROSE 50% 50 ML SYRINGE IV PRN (18:15)
[2020-07-12] MEDS ORDERED: GLUCOSE 40% GEL 15 GM TUBE PO PRN (18:15)
[2020-07-12] MEDS ORDERED: ONDANSETRON INJ 2 MG/ML 2 ML VIAL IV PRN (18:15)
[2020-07-12] MEDS ORDERED: GLUCAGON FOR INJ 1 MG VIAL SQ PRN (18:15)
[2020-07-12] MEDS ORDERED: GLUCOSE 10 TABS/TUBE PO PRN (18:15)
[2020-07-12] MEDS: ACETAMINOPHEN 1000 MG/100 ML IV IV PRN (20:36)
[2020-07-12] MEDS: POTASSIUM CHLORIDE 40 MEQ in SODIUM CHLORIDE 0.9% 1000ML 1,000 ML IV SCH (21:00)
[2020-07-12] MEDS: INSULIN GLARGINE SOLOSTAR 100 UNITS/ML 3 ML PEN SC SCH (21:01)
[2020-07-12] MEDS: INSULIN ASPART 100 UNITS/ML 3 ML PEN SC SCH (21:01)
[2020-07-12] MEDS ORDERED: oxyCODONE/ACETAMINOPHEN 5mg/325mg TAB PO PRN (23:48)
--- NOTE | 2020-07-12 23:55 | OB/GYN Consultation ---
Date of Consultation July 12, 2020 Assessment & Plan (1) Left flank pain: Patient is a 30-year-old -1-1-4 at 30 weeks and 6 days of gestation who was admitted with sudden onset left flank pain urine dip Was positive for blood suggesting kidney stones. She was sent from office to the ER where CVA tenderness and elevated white blood cell count noted. Admitted for empiric IV antibiotics and pain management. Vital signs stable afebrile On Rocephin IV and acetaminophen IV and p.o. Still complains of pain heart rate reassuring No signs of symptoms of labor Recommend to continue with IV antibiotic May add Percocet for pain for 1-2 days Consider changing AB to piperacillin with tazobactam and renal CT, If no improvement in pain in 24 hours Will continue to monitor FHR and contractions Thank you (2) Obesity: (3) Hydronephrosis: (4) Diabetes mellitus, type II: History of Present Illness Attending Physician: Raghu Resendiz MD History of Present Illness Patient is an 30-year-old -1-1-4 at 30 weeks and 6 days of gestation who was admitted for suspected left-sided pyelonephritis versus nephrolithiasis due to acute left flank pain which started yesterday. She went to [facility], office and ruled out labor. Her urine dip had blood in it and suspected kidney stones and she was sent to the ER for further work-up. Her white count was elevated at 24K and she has CVA tenderness and urine had some white blood cells and bacteria. Her renal ultrasound showed hydronephrosis of left kidney with no stones and right kidney showed a small stone. She was admitted for IV antibiotics empirically. She denies contractions, leakage of fluid or vaginal bleeding. She reports good movements. Her NST was reactive and tot showed no contractions. She still c/o pain. No has been complicated by 1 class II obesity 2 pre-existing type 2 diabetes, on insulin. 3 history of prior , desires . 4 history of labor, 34.3 weeks last year in September 2019. 5 smoker, half pack a day 6 family history of genetic disorder, she has a child with MS P1 7 history of abnormal EKG and cardiology evaluation in April 2020 no medication was prescribed recommended diabetes management and smoking cessation Allergies Allergy/AdvReac Type Severity Reaction Status Date / Time No Known Allergies Allergy Verified 07/12/20 15:21 Home Medications Medication Instructions Recorded Confirmed Type vit no.[id number] 800 tab PO DAILY 09/05/19 07/12/20 History [ Vitamin] insulin aspart U-100 [Novolog 11 unit SUBCUT .BEFORE DINNER 07/12/20 07/12/20 History Flexpen U-100 Insulin] insulin glargine [Lantus Solostar 37 unit SUBCUT HS 07/12/20 07/12/20 History U-100 Insulin] Patient History Medical History Diabetes mellitus, type II Gestational diabetes Obesity Surgical History History of Family History Other Family history unknown Social History Smoking Status: Smoker, status unknown Tobacco Type: Cigarettes Cigarettes Per Day: 10; Second Hand Exposure: No; Do You Dip or Chew Tobacco: No; Hx Alcohol Use: No Hx Substance Use: No Preferred Language: [place] Communication Ability: Effective Crane Assembler Required: No Beliefs That Will Affect Care: None marital status: Current Living Situation: Alone and Family Other Information That Helps Us Care for You: No Feels Safe at Home: Yes Safety Concerns: Feels Safe At This Time Assistive Devices: None Review of Systems Review of Systems: All systems reviewed & are unremarkable except as noted in HPI & below Physical Exam Constitutional: WD/WN, vitals as above well developed, well nourished and + obese She was sleeping when I entered her room, and agreed to talk to me. Upon waking up and turning around, she started to c/o Left flank pain again. Stated it comes and goes. Gastrointestinal (Abdomen): normal bowel sounds, soft, nontender, no hepatosplenomegaly (gravid, Lt CVAT) Results & Data ([facility]) Vital Signs (Past 12 Hours) Vital Signs Temp Pulse Pulse Resp BP BP Pulse Ox 07/12/20 18:21 37.0 C 98 H 16 117/65 97 07/12/20 18:17 37.0 C 98 H 18 117/65 97 07/12/20 17:59 96 H 18 143/64 H 98 07/12/20 17:58 95 H 18 143/64 H 98 07/12/20 17:05 112 H 18 145/79 H 96 07/12/20 15:51 88 20 126/68 96 07/12/20 14:46 100 H 07/12/20 13:52 36.4 C L 108 H 18 128/79 97 Laboratory Results Lab Results 07/12/20 07/12/20 07/12/20 Range/Units 14:28 14:28 14:38 WBC 24.82 H (4.8-10.8) K/uL RBC 3.73 L (4.2-5.4) M/uL Hgb 11.6 L (12.0-16.0) g/dL Hct 31.8 L (37-47) % MCV 85.3 (80-100) fL MCH 31.1 (25-34) pg MCHC 36.5 H (32-36) g/dL RDW Std Deviation 41.7 (36.4-46.3) fL RDW Coeff of Maureen 13.5 (11.5-14.5) % Plt Count 178 (130-400) K/uL MPV 11.0 H (7.4-10.4) fL Immature Gran % (Auto) 0.3 % Neut % (Auto) 87.3 % Lymph % (Auto) 6.6 % Moffat % (Auto) 5.7 % Eos % (Auto) 0.1 % Baso % (Auto) 0.0 % Neut # (Auto) 21.65 H (1.4-6.5) K/uL Lymph # (Auto) 1.64 (1.2-3.4) K/uL Moffat # (Auto) 1.41 H (0.11-0.59) K/uL Eos # (Auto) 0.03 (0-0.5) K/uL Baso # (Auto) 0.01 (0-0.2) K/uL Immature Gran # (Auto) 0.08 H (0.00-0.02) K/uL Sodium 139 (136-145) mmol/L Potassium 2.7 L (3.5-5.1) mmol/L Chloride 107 (98-107) mmol/L Carbon Dioxide 23 (21-32) mmol/L Anion Gap 9.0 (3-11) BUN 10 (7-18) mg/dl Creatinine 0.86 (0.6-1.2) mg/dl Est Cr Clr Drug Dosing 95.9 ml/min Est GFR ( Amer) 105.1 Est GFR (Non-Af Amer) 90.7 BUN/Creatinine Ratio 11.8 (10-20) Glucose 84 (70-99) mg/dl POC Glucose (70-99) mg/dl Calcium 8.5 (8.5-10.1) mg/dl Magnesium 1.6 L (1.8-2.4) mg/dl Total Bilirubin 0.5 (0.2-1) mg/dl AST 13 L (15-37) U/L ALT 17 (12-78) U/L Alkaline Phosphatase 98 (45-117) U/L Total Protein 6.6 (6.4-8.2) gm/dl Albumin 2.5 L (3.4-5.0) gm/dl Globulin 4.1 H (2.5-4.0) gm/dl Albumin/Globulin Ratio 0.6 L (0.9-2) Lipase 84 (73-393) U/L Urine Color Yellow Urine Appearance Clear (Clear) Urine pH 7.0 (4.5-7.5) Ur Specific [place] 1.016 (1.000-1.030) Urine Protein Trace H (Negative) Urine Glucose (UA) Negative (Negative) Urine Ketones 3+ H (Negative) Urine Blood Trace H (Negative) Urine Nitrite Negative (Negative) Urine Bilirubin Negative (Negative) Urine Urobilinogen Negative (Negative) Ur Leukocyte Esterase Trace H (Negative) Urine WBC (Auto) 5-10 H (0-5) /hpf Urine RBC (Auto) 5-10 H (0-4) /hpf U Hyaline Cast (Auto) 1-5 (0-5) /lpf U Epithel Cells (Auto) >30 H (0-5) /lpf Urine Bacteria (Auto) 1+ H (Negative) COVID-19 Eval Order SARS-CoV-2 (PCR) (Negative) Influenza Type A (PCR) (Neg) Influenza Type B (PCR) (Neg) RSV (RT-PCR) (Neg) 07/12/20 07/12/20 07/12/20 Range/Units 16:34 16:34 19:20 WBC (4.8-10.8) K/uL RBC (4.2-5.4) M/uL Hgb (12.0-16.0) g/dL Hct (37-47) % MCV (80-100) fL MCH (25-34) pg MCHC (32-36) g/dL RDW Std Deviation (36.4-46.3) fL RDW Coeff of Maureen (11.5-14.5) % Plt Count (130-400) K/uL MPV (7.4-10.4) fL Immature Gran % (Auto) % Neut % (Auto) % Lymph % (Auto) % Moffat % (Auto) % Eos % (Auto) % Baso % (Auto) % Neut # (Auto) (1.4-6.5) K/uL Lymph # (Auto) (1.2-3.4) K/uL Moffat # (Auto) (0.11-0.59) K/uL Eos # (Auto) (0-0.5) K/uL Baso # (Auto) (0-0.2) K/uL Immature Gran # (Auto) (0.00-0.02) K/uL Sodium (136-145) mmol/L Potassium (3.5-5.1) mmol/L Chloride (98-107) mmol/L Carbon Dioxide (21-32) mmol/L Anion Gap (3-11) BUN (7-18) mg/dl Creatinine (0.6-1.2) mg/dl Est Cr Clr Drug Dosing ml/min Est GFR ( Amer) Est GFR (Non-Af Amer) BUN/Creatinine Ratio (10-20) Glucose (70-99) mg/dl POC Glucose 89 (70-99) mg/dl Calcium (8.5-10.1) mg/dl Magnesium (1.8-2.4) mg/dl Total Bilirubin (0.2-1) mg/dl AST (15-37) U/L ALT (12-78) U/L Alkaline Phosphatase (45-117) U/L Total Protein (6.4-8.2) gm/dl Albumin (3.4-5.0) gm/dl Globulin (2.5-4.0) gm/dl Albumin/Globulin Ratio (0.9-2) Lipase (73-393) U/L Urine Color Urine Appearance (Clear) Urine pH (4.5-7.5) Ur Specific [place] (1.000-1.030) Urine Protein (Negative) Urine Glucose (UA) (Negative) Urine Ketones (Negative) Urine Blood (Negative) Urine Nitrite (Negative) Urine Bilirubin (Negative) Urine Urobilinogen (Negative) Ur Leukocyte Esterase (Negative) Urine WBC (Auto) (0-5) /hpf Urine RBC (Auto) (0-4) /hpf U Hyaline Cast (Auto) (0-5) /lpf U Epithel Cells (Auto) (0-5) /lpf Urine Bacteria (Auto) (Negative) COVID-19 Eval Order CovFluRsv at [facility] SARS-CoV-2 (PCR) NEGATIVE (Negative) Influenza Type A (PCR) Negative (Neg) Influenza Type B (PCR) Negative (Neg) RSV (RT-PCR) Negative (Neg) 07/12/20 Range/Units 20:59 WBC (4.8-10.8) K/uL RBC (4.2-5.4) M/uL Hgb (12.0-16.0) g/dL Hct (37-47) % MCV (80-100) fL MCH (25-34) pg MCHC (32-36) g/dL RDW Std Deviation (36.4-46.3) fL RDW Coeff of Maureen (11.5-14.5) % Plt Count (130-400) K/uL MPV (7.4-10.4) fL Immature Gran % (Auto) % Neut % (Auto) % Lymph % (Auto) % Moffat % (Auto) % Eos % (Auto) % Baso % (Auto) % Neut # (Auto) (1.4-6.5) K/uL Lymph # (Auto) (1.2-3.4) K/uL Moffat # (Auto) (0.11-0.59) K/uL Eos # (Auto) (0-0.5) K/uL Baso # (Auto) (0-0.2) K/uL Immature Gran # (Auto) (0.00-0.02) K/uL Sodium (136-145) mmol/L Potassium (3.5-5.1) mmol/L Chloride (98-107) mmol/L Carbon Dioxide (21-32) mmol/L Anion Gap (3-11) BUN (7-18) mg/dl Creatinine (0.6-1.2) mg/dl Est Cr Clr Drug Dosing ml/min Est GFR ( Amer) Est GFR (Non-Af Amer) BUN/Creatinine Ratio (10-20) Glucose (70-99) mg/dl POC Glucose 133 H (70-99) mg/dl Calcium (8.5-10.1) mg/dl Magnesium (1.8-2.4) mg/dl Total Bilirubin (0.2-1) mg/dl AST (15-37) U/L ALT (12-78) U/L Alkaline Phosphatase (45-117) U/L Total Protein (6.4-8.2) gm/dl Albumin (3.4-5.0) gm/dl Globulin (2.5-4.0) gm/dl Albumin/Globulin Ratio (0.9-2) Lipase (73-393) U/L Urine Color Urine Appearance (Clear) Urine pH (4.5-7.5) Ur Specific [place] (1.000-1.030) Urine Protein (Negative) Urine Glucose (UA) (Negative) Urine Ketones (Negative) Urine Blood (Negative) Urine Nitrite (Negative) Urine Bilirubin (Negative) Urine Urobilinogen (Negative) Ur Leukocyte Esterase (Negative) Urine WBC (Auto) (0-5) /hpf Urine RBC (Auto) (0-4) /hpf U Hyaline Cast (Auto) (0-5) /lpf U Epithel Cells (Auto) (0-5) /lpf Urine Bacteria (Auto) (Negative) COVID-19 Eval Order SARS-CoV-2 (PCR) (Negative) Influenza Type A (PCR) (Neg) Influenza Type B (PCR) (Neg) RSV (RT-PCR) (Neg) (1) Hydronephrosis Hydronephrosis type: unspecified Qualified Code(s): N13.30 - Unspecified hydronephrosis
[2020-07-13] MEDS ORDERED: POTASSIUM CHLORIDE 40 MEQ in SODIUM CHLORIDE 0.9% 1000ML 1,000 ML IV ONE (01:00)
[2020-07-13] MEDS: ACETAMINOPHEN 1000 MG/100 ML IV IV PRN ×2 (05:00→16:24)
[2020-07-13 06:11] LABS: Basophils # (auto) 0.01 K/uL (0-0.2); Basophils % (auto) 0.1 %; Eosinophils # (auto) 0.01 K/uL (0-0.5); Eosinophils % (auto) 0.1 %; Hemoglobin 10.8 g/dL (12.0-16.0); Immature Granulocytes # (auto) 0.07 K/uL (0.00-0.02); Immature Granulocytes % (auto) 0.4 %; Lymphocytes # (auto) 1.06 K/uL (1.2-3.4); Lymphocytes % (auto) 5.9 %; Mean Corpuscular Hemoglobin 30.5 pg (25-34); Mean Corpuscular Hgb Conc 34.8 g/dL (32-36); Mean Corpuscular Volume 87.6 fL (80-100); Mean Platelet Volume 11.3 fL (7.4-10.4); Monocytes # (auto) 1.07 K/uL (0.11-0.59); Neutrophils % (auto) 87.5 %; Platelet Count 147 K/uL (130-400); RDW Coefficient of Variation 13.4 % (11.5-14.5); RDW Standard Deviation 43.1 fL (36.4-46.3); Red Blood Count 3.54 M/uL (4.2-5.4); White Blood Count 17.92 K/uL (4.8-10.8)
[2020-07-13 06:43] LABS: BUN Creatinine Ratio 7.5 (10-20); Calcium 7.8 mg/dl (8.5-10.1); Creatinine Clr Calc Pharmacy 80.1 ml/min; Est GFR (African American) 84.5; Est GFR (Non-African American) 72.9; Magnesium 1.7 mg/dl (1.8-2.4); Potassium 2.9 mmol/L (3.5-5.1)
[2020-07-13] MEDS ORDERED: oxyCODONE HCL IR 5 MG TAB (IMMEDIATE RELEASE) PO PRN (08:18)
[2020-07-13] MEDS ORDERED: POTASSIUM CHLORIDE CRTAB 20 MEQ TABCR PO STA ×2 (08:19→22:50)
[2020-07-13] MEDS ORDERED: MAGNESIUM SULFATE / D5W 1 GM/100 ML BAG IV ONE (08:30)
[2020-07-13] MEDS: PRENATAL VITAMIN 1 TAB PO SCH (08:33)
[2020-07-13] MEDS: POTASSIUM CHLORIDE 40 MEQ in SODIUM CHLORIDE 0.9% 1000ML 1,000 ML IV SCH (08:39)
[2020-07-13] MEDS: INSULIN GLARGINE SOLOSTAR 100 UNITS/ML 3 ML PEN SC SCH (08:42)
[2020-07-13] MEDS: INSULIN ASPART 100 UNITS/ML 3 ML PEN SC SCH ×2 (08:44→12:59)
[2020-07-13] MEDS: POTASSIUM CHLORIDE / WTR 10 MEQ/100 ML PLCT IV SCH ×2 (09:21→16:13)
--- NOTE | 2020-07-13 09:44 | Obstetrical Progress Note ---
Date of Service July 13, 2020 Assessment & Plan Admission and Anticipated Discharge Date Admission Date: July 12, 2020 Subjective Patient is reevaluated She was sleeping when I came in and NST was registering FHR 150's, with 10x10 accels, no decels, episodes of minimal variability ( s/p Oxycodone use) [place]: no contractions She was waken up by her nurse to take temp it was 39.1 She still c/o left flank/ mid abdominal pain WBCC came down to 17 K Her WBCC was 17 K at 28wks, 15K at 1st trimester. Discussed with Dr. Urban about plan Will switch to broader spectrum AB May use IV morphine occasionally for severe pain Await urology consult 07/13/20 07/13/20 07/13/20 Range/Units 08:16 05:54 05:54 WBC 17.92 H (4.8-10.8) K/uL RBC 3.54 L (4.2-5.4) M/uL Hgb 10.8 L (12.0-16.0) g/dL Hct 31.0 L (37-47) % MCV 87.6 (80-100) fL MCH 30.5 (25-34) pg MCHC 34.8 (32-36) g/dL RDW Std Deviation 43.1 (36.4-46.3) fL RDW Coeff of Maureen 13.4 (11.5-14.5) % Plt Count 147 (130-400) K/uL MPV 11.3 H (7.4-10.4) fL Immature Gran % (Auto) 0.4 % Neut % (Auto) 87.5 % Lymph % (Auto) 5.9 % [place] % (Auto) 6.0 % Eos % (Auto) 0.1 % Baso % (Auto) 0.1 % Neut # (Auto) 15.70 H (1.4-6.5) K/uL Lymph # (Auto) 1.06 L (1.2-3.4) K/uL [place] # (Auto) 1.07 H (0.11-0.59) K/uL Eos # (Auto) 0.01 (0-0.5) K/uL Baso # (Auto) 0.01 (0-0.2) K/uL Immature Gran # (Auto) 0.07 H (0.00-0.02) K/uL Sodium 138 (136-145) mmol/L Potassium 2.9 L (3.5-5.1) mmol/L Chloride 108 H (98-107) mmol/L Carbon Dioxide 21 (21-32) mmol/L Anion Gap 9.0 (3-11) BUN 8 (7-18) mg/dl Creatinine 1.03 (0.6-1.2) mg/dl Est Cr Clr Drug Dosing 80.1 ml/min Est GFR ( Amer) 84.5 Est GFR (Non-Af Amer) 72.9 BUN/Creatinine Ratio 7.5 L (10-20) Glucose 102 H (70-99) mg/dl POC Glucose 114 H (70-99) mg/dl Calcium 7.8 L (8.5-10.1) mg/dl Magnesium 1.7 L (1.8-2.4) mg/dl Total Bilirubin (0.2-1) mg/dl AST (15-37) U/L ALT (12-78) U/L Alkaline Phosphatase (45-117) U/L Total Protein (6.4-8.2) gm/dl Albumin (3.4-5.0) gm/dl Globulin (2.5-4.0) gm/dl Albumin/Globulin Ratio (0.9-2) Lipase (73-393) U/L Urine Color Urine Appearance (Clear) Urine pH (4.5-7.5) Ur Specific [place] (1.000-1.030) Urine Protein (Negative) Urine Glucose (UA) (Negative) Urine Ketones (Negative) Urine Blood (Negative) Urine Nitrite (Negative) Urine Bilirubin (Negative) Urine Urobilinogen (Negative) Ur Leukocyte Esterase (Negative) Urine WBC (Auto) (0-5) /hpf Urine RBC (Auto) (0-4) /hpf U Hyaline Cast (Auto) (0-5) /lpf U Epithel Cells (Auto) (0-5) /lpf Urine Bacteria (Auto) (Negative) COVID-19 Eval Order SARS-CoV-2 (PCR) (Negative) Influenza Type A (PCR) (Neg) Influenza Type B (PCR) (Neg) RSV (RT-PCR) (Neg) 07/12/20 07/12/20 07/12/20 Range/Units 20:59 19:20 16:34 WBC (4.8-10.8) K/uL RBC (4.2-5.4) M/uL Hgb (12.0-16.0) g/dL Hct (37-47) % MCV (80-100) fL MCH (25-34) pg MCHC (32-36) g/dL RDW Std Deviation (36.4-46.3) fL RDW Coeff of Maureen (11.5-14.5) % Plt Count (130-400) K/uL MPV (7.4-10.4) fL Immature Gran % (Auto) % Neut % (Auto) % Lymph % (Auto) % [place] % (Auto) % Eos % (Auto) % Baso % (Auto) % Neut # (Auto) (1.4-6.5) K/uL Lymph # (Auto) (1.2-3.4) K/uL [place] # (Auto) (0.11-0.59) K/uL Eos # (Auto) (0-0.5) K/uL Baso # (Auto) (0-0.2) K/uL Immature Gran # (Auto) (0.00-0.02) K/uL Sodium (136-145) mmol/L Potassium (3.5-5.1) mmol/L Chloride (98-107) mmol/L Carbon Dioxide (21-32) mmol/L Anion Gap (3-11) BUN (7-18) mg/dl Creatinine (0.6-1.2) mg/dl Est Cr Clr Drug Dosing ml/min Est GFR ( Amer) Est GFR (Non-Af Amer) BUN/Creatinine Ratio (10-20) Glucose (70-99) mg/dl POC Glucose 133 H 89 (70-99) mg/dl Calcium (8.5-10.1) mg/dl Magnesium (1.8-2.4) mg/dl Total Bilirubin (0.2-1) mg/dl AST (15-37) U/L ALT (12-78) U/L Alkaline Phosphatase (45-117) U/L Total Protein (6.4-8.2) gm/dl Albumin (3.4-5.0) gm/dl Globulin (2.5-4.0) gm/dl Albumin/Globulin Ratio (0.9-2) Lipase (73-393) U/L Urine Color Urine Appearance (Clear) Urine pH (4.5-7.5) Ur Specific [place] (1.000-1.030) Urine Protein (Negative) Urine Glucose (UA) (Negative) Urine Ketones (Negative) Urine Blood (Negative) Urine Nitrite (Negative) Urine Bilirubin (Negative) Urine Urobilinogen (Negative) Ur Leukocyte Esterase (Negative) Urine WBC (Auto) (0-5) /hpf Urine RBC (Auto) (0-4) /hpf U Hyaline Cast (Auto) (0-5) /lpf U Epithel Cells (Auto) (0-5) /lpf Urine Bacteria (Auto) (Negative) COVID-19 Eval Order SARS-CoV-2 (PCR) NEGATIVE (Negative) Influenza Type A (PCR) Negative (Neg) Influenza Type B (PCR) Negative (Neg) RSV (RT-PCR) Negative (Neg) 07/12/20 07/12/20 07/12/20 Range/Units 16:34 14:38 14:28 WBC (4.8-10.8) K/uL RBC (4.2-5.4) M/uL Hgb (12.0-16.0) g/dL Hct (37-47) % MCV (80-100) fL MCH (25-34) pg MCHC (32-36) g/dL RDW Std Deviation (36.4-46.3) fL RDW Coeff of Maureen (11.5-14.5) % Plt Count (130-400) K/uL MPV (7.4-10.4) fL Immature Gran % (Auto) % Neut % (Auto) % Lymph % (Auto) % [place] % (Auto) % Eos % (Auto) % Baso % (Auto) % Neut # (Auto) (1.4-6.5) K/uL Lymph # (Auto) (1.2-3.4) K/uL [place] # (Auto) (0.11-0.59) K/uL Eos # (Auto) (0-0.5) K/uL Baso # (Auto) (0-0.2) K/uL Immature Gran # (Auto) (0.00-0.02) K/uL Sodium 139 (136-145) mmol/L Potassium 2.7 L (3.5-5.1) mmol/L Chloride 107 (98-107) mmol/L Carbon Dioxide 23 (21-32) mmol/L Anion Gap 9.0 (3-11) BUN 10 (7-18) mg/dl Creatinine 0.86 (0.6-1.2) mg/dl Est Cr Clr Drug Dosing 95.9 ml/min Est GFR ( Amer) 105.1 Est GFR (Non-Af Amer) 90.7 BUN/Creatinine Ratio 11.8 (10-20) Glucose 84 (70-99) mg/dl POC Glucose (70-99) mg/dl Calcium 8.5 (8.5-10.1) mg/dl Magnesium 1.6 L (1.8-2.4) mg/dl Total Bilirubin 0.5 (0.2-1) mg/dl AST 13 L (15-37) U/L ALT 17 (12-78) U/L Alkaline Phosphatase 98 (45-117) U/L Total Protein 6.6 (6.4-8.2) gm/dl Albumin 2.5 L (3.4-5.0) gm/dl Globulin 4.1 H (2.5-4.0) gm/dl Albumin/Globulin Ratio 0.6 L (0.9-2) Lipase 84 (73-393) U/L Urine Color Yellow Urine Appearance Clear (Clear) Urine pH 7.0 (4.5-7.5) Ur Specific [place] 1.016 (1.000-1.030) Urine Protein Trace H (Negative) Urine Glucose (UA) Negative (Negative) Urine Ketones 3+ H (Negative) Urine Blood Trace H (Negative) Urine Nitrite Negative (Negative) Urine Bilirubin Negative (Negative) Urine Urobilinogen Negative (Negative) Ur Leukocyte Esterase Trace H (Negative) Urine WBC (Auto) 5-10 H (0-5) /hpf Urine RBC (Auto) 5-10 H (0-4) /hpf U Hyaline Cast (Auto) 1-5 (0-5) /lpf U Epithel Cells (Auto) >30 H (0-5) /lpf Urine Bacteria (Auto) 1+ H (Negative) COVID-19 Eval Order CovFluRsv at [facility] SARS-CoV-2 (PCR) (Negative) Influenza Type A (PCR) (Neg) Influenza Type B (PCR) (Neg) RSV (RT-PCR) (Neg) 07/12/20 Range/Units 14:28 WBC 24.82 H (4.8-10.8) K/uL RBC 3.73 L (4.2-5.4) M/uL Hgb 11.6 L (12.0-16.0) g/dL Hct 31.8 L (37-47) % MCV 85.3 (80-100) fL MCH 31.1 (25-34) pg MCHC 36.5 H (32-36) g/dL RDW Std Deviation 41.7 (36.4-46.3) fL RDW Coeff of Maureen 13.5 (11.5-14.5) % Plt Count 178 (130-400) K/uL MPV 11.0 H (7.4-10.4) fL Immature Gran % (Auto) 0.3 % Neut % (Auto) 87.3 % Lymph % (Auto) 6.6 % [place] % (Auto) 5.7 % Eos % (Auto) 0.1 % Baso % (Auto) 0.0 % Neut # (Auto) 21.65 H (1.4-6.5) K/uL Lymph # (Auto) 1.64 (1.2-3.4) K/uL [place] # (Auto) 1.41 H (0.11-0.59) K/uL Eos # (Auto) 0.03 (0-0.5) K/uL Baso # (Auto) 0.01 (0-0.2) K/uL Immature Gran # (Auto) 0.08 H (0.00-0.02) K/uL Sodium (136-145) mmol/L Potassium (3.5-5.1) mmol/L Chloride (98-107) mmol/L Carbon Dioxide (21-32) mmol/L Anion Gap (3-11) BUN (7-18) mg/dl Creatinine (0.6-1.2) mg/dl Est Cr Clr Drug Dosing ml/min Est GFR ( Amer) Est GFR (Non-Af Amer) BUN/Creatinine Ratio (10-20) Glucose (70-99) mg/dl POC Glucose (70-99) mg/dl Calcium (8.5-10.1) mg/dl Magnesium (1.8-2.4) mg/dl Total Bilirubin (0.2-1) mg/dl AST (15-37) U/L ALT (12-78) U/L Alkaline Phosphatase (45-117) U/L Total Protein (6.4-8.2) gm/dl Albumin (3.4-5.0) gm/dl Globulin (2.5-4.0) gm/dl Albumin/Globulin Ratio (0.9-2) Lipase (73-393) U/L Urine Color Urine Appearance (Clear) Urine pH (4.5-7.5) Ur Specific [place] (1.000-1.030) Urine Protein (Negative) Urine Glucose (UA) (Negative) Urine Ketones (Negative) Urine Blood (Negative) Urine Nitrite (Negative) Urine Bilirubin (Negative) Urine Urobilinogen (Negative) Ur Leukocyte Esterase (Negative) Urine WBC (Auto) (0-5) /hpf Urine RBC (Auto) (0-4) /hpf U Hyaline Cast (Auto) (0-5) /lpf U Epithel Cells (Auto) (0-5) /lpf Urine Bacteria (Auto) (Negative) COVID-19 Eval Order SARS-CoV-2 (PCR) (Negative) Influenza Type A (PCR) (Neg) Influenza Type B (PCR) (Neg) RSV (RT-PCR) (Neg) Results & Data ([facility]) Vital Signs (Past 12 Hours) Vital Signs Temp Pulse Resp BP Pulse Ox 07/13/20 09:15 37.5 C 114 H 40 H 134/83 07/13/20 07:54 37.0 C 106 H 18 115/74 95 07/13/20 03:49 37.1 C 98 H 18 105/60 97 07/13/20 00:33 38 C H 16 116/47 L 94
[2020-07-13] MEDS ORDERED: MoRPHine SULFATE 2 MG/ML CARP IV PRN (09:49)
--- NOTE | 2020-07-13 09:49 | Urology Consultation ---
Date of Consultation July 13, 2020 Assessment & Plan (1) Hydronephrosis: Patient with acute left flank pain, hydronephrosis, blood in urine, during 30-week period of . Patient has what appears to be small stones on the right. No obvious stones on left. No obstructing stone seen on left side. Did not see exploration of urine from ureter on left and does have moderate hydro-. Did discuss possibility that [place] is related to uterus/obstruction and normal changes during . Patient has intermittent episodes of discomfort. Discussed options at length. Discussed issues related to stones and obstruction. Discussed indications for surgical management of stones during . Patient does have a elevated white count but has been afebrile. Has been tolerating antibiotics without major issues. Patient's renal function remained stable. There has been no sign of considerable issues with the due to the episode of renal colic. Patient has been tolerating antibiotics. Discussed options and indications for further imaging. Did discuss that though CT scan or KUB might be able to determine whether or not there is a stone at this point unless there is an indication for surgical management I would recommend against more in-depth imaging as it will only confirm the assumed diagnosis. Maximum expulsion therapy with aggressive hydration and management of discomfort at this point would be recommended. Did discuss discomfort and pain issues. Unfortunately also discussed limited options due to the high risk related to surgical intervention and anesthetic versus management of discomfort. Recommended against utilization of stent if only for pain control. Discussed surgical options would likely include stent. Discussed issues related to stent discomfort especially with and poor toleration. Discussed concerns related to effect on fetus/ overall with anesthesia. If pain did get the point of being uncontrollable/intractable would recommend likely transfer for nephrostomy tube placement for management of obstruction as this can be done with local anesthetic and without general anesthesia and is typically better tolerated than internal stent. Patient's complicated medical history was all reviewed. Patient's previous reports were also reviewed from gynecology. Patient's imaging was reviewed interpreted by myself and see my interpretation as above. Continued observation, antibiotics for bacteriuria/possible UTI, and symptom control. Will monitor for exacerbation of issues especially development of fevers or renal issues. Would recommend continuing monitoring with renal ultrasound and avoiding any external radiation and less patient develops more sudden or severe issues. If patient does start to develop consistent fevers while on antibiotics will need to be made n.p.o. and likely proceed for cystoscopy with possible stent and stone extraction versus dilation. We will plan to recheck renal ultrasound today. This note was completed using a dictation program/software such as [employer]. As such there may be misspellings, word substitutions, or other variations in language or syntax that should not change the essence of the clinical content of this encounter note. If there is a need for further clarification, please direct questions to the provider listed. History of Present Illness Attending Physician: Hayden English MD History of Present Illness New consultation for patient with stone, discomfort, obstruction, and ill feelings. Patient developed sudden onset of pain into flank going down and radiating into groin and back in waves comes and goes. Can be severe at times. Patient is 30 weeks into . Was seen and due to blood in the urine and increasing left flank pain was sent for assessment. On imaging patient has been found to have right-sided stones. The imaging was reviewed interpreted by myself. Does have left-sided hydro-. No obvious sign of urine expulsion on the left side. Was visible on right. Discussed and reviewed patient's family history for any history of stone disease. Has family history of genetic issues. Also, discussed patient's medical surgery history especially related to any history of urinary issues or stone disease. Patient has diabetes type 2. to this point has not h ad major issues or problems. Patient was admitted and is undergoing observation. Has been working with hydration. Has not had considerable relief of pain. Does have occasional episodes of decreased issue. Allergies Allergy/AdvReac Type Severity Reaction Status Date / Time No Known Allergies Allergy Verified 07/12/20 15:21 Home Medications Medication Instructions Recorded Confirmed Type vit no.[id number] 800 tab PO DAILY 09/05/19 07/12/20 History [ Vitamin] insulin aspart U-100 [Novolog 11 unit SUBCUT .BEFORE DINNER 07/12/20 07/12/20 History Flexpen U-100 Insulin] insulin glargine [Lantus Solostar 37 unit SUBCUT HS 07/12/20 07/12/20 History U-100 Insulin] Patient History Medical History Diabetes mellitus, type II Gestational diabetes Obesity Surgical History History of Family History Other Family history unknown Social History Smoking Status: Smoker, status unknown Tobacco Type: Cigarettes Cigarettes Per Day: 10; Second Hand Exposure: No; Do You Dip or Chew Tobacco: No; Hx Alcohol Use: No Hx Substance Use: No Preferred Language: Mexican Communication Ability: Effective Tag Marker Required: No Beliefs That Will Affect Care: None marital status: Current Living Situation: Alone and Family Other Information That Helps Us Care for You: No Feels Safe at Home: Yes Safety Concerns: Feels Safe At This Time Assistive Devices: None Review of Systems Review of Systems: All systems reviewed & are unremarkable except as noted in HPI & below Physical Exam Physical Exam: General: Alert and oriented x 3 in no acute distress. Patient is well nourished and well kept. HEENT: Normocephalic Atraumatic. Inspection normal. Cranial Nerves 2-12 Grossly intact. Nares are clear. Neck is supple. Normal inspection of face. Normal inspection of neck. Neurologic: No deficits on inspection. Baseline for motor function and sensory. Psychologic: Normal affect. Respiratory: Nonlabored. No use of accessory muscles. No tachypnea or dyspnea. Cardiovascular: No tachycardia Skin: [place] and Dry. No rashes or visible lesions. Extremities: Moving without issues. No motor deficits on inspection Lymphatics: No edema Abdomen: Soft Non-distended. No acites. No rebound or guarding. Obese. Gravid uterus. Results & Data ([facility]) Vital Signs (Past 12 Hours) Vital Signs Temp Pulse Resp BP Pulse Ox 07/13/20 09:15 37.5 C 114 H 40 H 134/83 07/13/20 07:54 37.0 C 106 H 18 115/74 95 07/13/20 03:49 37.1 C 98 H 18 105/60 97 07/13/20 00:33 38 C H 16 116/47 L 94 PG Care Time/CCT Total # of Minutes Spent Total Time Spent with Patient: Total time spent is greater than 50% in coordination of care (as documented) at patient's floor/unit and/or counseling patient: Coding Level of Care Code 20459 Inpt Consult Level 5 Diagnoses Hydronephrosis N13.30 Hydronephrosis type: unspecified (1) Hydronephrosis Hydronephrosis type: unspecified Qualified Code(s): N13.30 - Unspecified hydronephrosis
[2020-07-13] MEDS ORDERED: PIPERACILL/TAZOBAC CONSULT ACTIVE PRN (10:13)
[2020-07-13] MEDS ORDERED: PIPERACILLIN/TAZOBACTAM 4.5 GM in DEXTROSE 5% 100 ML IV ONE (10:15)
--- NOTE | 2020-07-13 12:49 | Ultrasound Report ---
RENAL ULTRASOUND HISTORY: Left flank pain. Follow-up hydronephrosis. COMPARISON: Renal ultrasound 07/12/2020. FINDINGS: Right kidney: 12.8 cm. Mild hydronephrosis, unchanged. Normal corticomedullary differentiation and co rtical thickness. Left kidney: 13.7 cm. Mild to moderate hydronephrosis, unchanged. A 1.6 cm upper pole cyst. Bladder: No bladder wall thickening. Only the right ureteral jet was identified this time. IMPRESSION: 1. Mild right and mild to moderate left hydronephrosis, unchanged. 2. No bladder wall thickening. ACT 112: Negative or not required by law. Electronically signed by: Hero Castro M.D. 07/13/2020 12:47 PM
--- NOTE | 2020-07-13 13:12 | Anesthesiology Consultation ---
Date of Service July 13, 2020 Assessment & Plan (1) Encounter for pre-operative examination: History Surgery Operation Date: 07/13/20 13:00 Proposed Procedures p Ureteral Stent Insertion/Removal - Chris Escoto DO Height/Weight Height: 5 ft 1 in Weight: 87.09 kg Allergies Allergy/AdvReac Type Severity Reaction Status Date / Time No Known Allergies Allergy Verified 07/12/20 15:21 Medications Home Medications Medication Instructions Recorded Confirmed Last Taken vit no.[id number] 800 tab PO DAILY 09/05/19 07/12/20 09/04/19 [ Vitamin] insulin aspart U-100 [Novolog 11 unit SUBCUT .BEFORE DINNER 07/12/20 07/12/20 Unknown Flexpen U-100 Insulin] insulin glargine [Lantus Solostar 37 unit SUBCUT HS 07/12/20 07/12/20 Unknown U-100 Insulin] Active Medications Generic Name Dose Route Start Last Admin Trade Name Freq PRN Reason Stop Dose Admin Acetaminophen 1,000 mg 07/12/20 18:15 07/13/20 05:00 Acetaminophen 1000 Mg/100 Ml Iv IV 07/15/20 18:14 1,000 mg Q8H PRN Administration pain Potassium Chloride 40 meq/ 1,020 mls @ 100 mls/hr 07/12/20 19:15 07/13/20 08:39 Sodium Chloride IV 07/13/20 15:38 100 mls/hr .[id number] VÍCTOR Administration Insulin Aspart 0 units 07/12/20 21:00 07/13/20 12:59 Insulin Aspart 100 Units/Ml 3 Ml Pen SC 08/11/20 20:59 Not Given ACHS VÍCTOR Insulin Glargine 0 - 21 units 07/12/20 21:00 07/13/20 08:42 Insulin Glargine Solostar 100 Units/Ml 3 Ml Pen SC 08/11/20 20:59 10 units BID VÍCTOR Administration Morphine Sulfate 2 mg 07/13/20 09:49 07/13/20 10:44 Morphine Sulfate 2 Mg/Ml Carp IV 07/27/20 09:48 2 mg Q6H PRN Administration severe pain Ondansetron HCl 4 mg 07/12/20 18:15 07/13/20 04:55 Ondansetron Inj 2 Mg/Ml 2 Ml Vial IV 08/11/20 18:14 4 mg Q6H PRN Administration Nausea Oxycodone HCl 5 mg 07/13/20 08:18 07/13/20 08:31 Oxycodone Hcl Ir 5 Mg Tab (Immediate Release) PO 07/15/20 08:17 5 mg Q4H PRN Administration Pain Prenat Multivit/[place]/Iron/Folic Ac 1 tab 07/13/20 09:00 07/13/20 08:33 Vitamin 1 Tab PO 08/12/20 08:59 1 tab DAILY VÍCTOR Administration Past Medical History Medical History (Updated 07/13/20 @ 13:14 by Heavenly Howe MD) Anemia Diabetes mellitus, type II Gestational diabetes Hydronephrosis Hypokalemia Intrauterine Obesity Past Family History Family History Other Family history unknown Past Surgical History Surgical History History of Social History Smoking Status: Smoker, status unknown tobacco type: cigarettes Smoking cigarettes per day: 10 Do You Dip or Chew Tobacco: No Hx Alcohol Use: No Hx Substance Use: No substance use type: does not use Physical Exam Vital Signs Last Vital Signs Temp 38.7 C H 07/13/20 12:29 Pulse 114 H 07/13/20 09:50 Resp 40 H 07/13/20 09:50 BP 134/83 07/13/20 09:50 Pulse Ox 95 07/13/20 07:54 Testing Laboratory Results 07/13/20 05:54 07/13/20 05:54 Urine Color Yellow 07/12/20 14:38 Urine Appearance Clear (Clear) 07/12/20 14:38 Urine pH 7.0 (4.5-7.5) 07/12/20 14:38 Ur Specific [place] 1.016 (1.000-1.030) 07/12/20 14:38 Urine Protein Trace (Negative) H 07/12/20 14:38 Urine Glucose (UA) Negative (Negative) 07/12/20 14:38 Urine Ketones 3+ (Negative) H 07/12/20 14:38 Urine Nitrite Negative (Negative) 07/12/20 14:38 Ur Leukocyte Esterase Trace (Negative) H 07/12/20 14:38 Urine WBC (Auto) 5-10 /hpf (0-5) H 07/12/20 14:38 Urine RBC (Auto) 5-10 /hpf (0-4) H 07/12/20 14:38 U Hyaline Cast (Auto) 1-5 /lpf (0-5) 07/12/20 14:38 U Epithel Cells (Auto) >30 /lpf (0-5) H 07/12/20 14:38 Urine Bacteria (Auto) 1+ (Negative) H 07/12/20 14:38 07/12/20 14:38 Urine Culture - Preliminary Urine,Clean Catch Pin-point growth present, reincubating. 07/13/20 07/13/20 12:22 08:16 POC Glucose 124 H 114 H
--- NOTE | 2020-07-13 13:14 | History & Physical Bridge Note ---
Date of Service July 13, 2020 History & Physical Bridge Note I have examined the patient, reviewed the History & Physical and in the interval since the performance of the History & Physical I have noted the following changes of clinical significance: Patient has developed persistent fever with acetaminophen. Repeat U/s shows persistent hydronephrosis on left. Patient tachycardiac, tachypneic, and temp still 38.7 c Patient has a left hydronephrosis with suspicion of pyelonephritis and sepsis. Persistent temperature elevation with antipyretics. On top of the typical risks and benefits, there is increased risk due to intrauterine . Patient's disease is considered a high risk with significant risk of morbidity and mortality if allowed to continue untreated. Different alternatives had been discussed. Delay of intervention at this time would have significant risk to life and limb. Specifically there is a chance of progression to severe disease or loss of organ/renal function, progression to infection or other advanced disease, and/or possible . The procedure has been deemed emergent, medically necessary, and life sustaining. This was determined based on best clinical judgement with guidelines and recommendations based on good practices. We will proceed with emergent cystoscopy with left stent placement
[2020-07-13] MEDS ORDERED: LIDOCAINE 2% JELLY 5 ML TUBE ONE (13:16)
[2020-07-13] MEDS ORDERED: LIDOCAINE HCL 1% 20 ML VIAL ONE (13:17)
[2020-07-13] MEDS ORDERED: fentaNYL citrate 100 MCG/2 ML VIAL ONE (13:25)
--- NOTE | 2020-07-13 13:34 | Obstetrical Progress Note ---
Date of Service July 13, 2020 Assessment & Plan Admission and Anticipated Discharge Date Admission Date: July 12, 2020 Subjective Patient is seen in holding area Getting ready for emergency surgery by Urology, Dr Escoto She is anxious Signed an informed consent for possible emergency C section if needed during or after surgery' NST: FHR 150's AGA, no decels, moderate variability Will continue to monitor during procedure. All questions were answered Results & Data ([facility]) Vital Signs (Past 12 Hours) Vital Signs Temp Pulse Pulse Resp BP BP Pulse Ox 07/13/20 12:29 38.7 C H 07/13/20 11:41 38.7 C H 07/13/20 10:10 39.0 C H 07/13/20 09:50 39.1 C H 114 H 40 H 134/83 07/13/20 09:15 37.5 C 114 H 40 H 134/83 07/13/20 07:54 37.0 C 106 H 18 115/74 95 07/13/20 03:49 37.1 C 98 H 18 105/60 97
[2020-07-13] MEDS ORDERED: DIATRIZOATE MEGLUMINE 30% 100ML VIAL INSTIL PRN (13:45)
[2020-07-13] MEDS: LIDOCAINE VISCOUS 2% 100ML ONE ×2 (13:53→14:16)
[2020-07-13] MEDS: LIDOCAINE 2% JELLY 5 ML TUBE ONE ×2 (13:54→14:15)
[2020-07-13] MEDS ORDERED: cefTRIAXone SODIUM 2,000 MG in DEXTROSE 5% 50 ML IV SCH (14:00)
--- NOTE | 2020-07-13 14:05 | Operative Report ---
PG Post Operative Report Pre & Post Diagnosis Operation Date: 07/13/20 13:00 Pre-Op Diagnosis: FLANK PAIN, HYDRONEPHROSIS, Sepsis Post-Op Diagnosis: FLANK PAIN, HYDRONEPHROSIS, Sepsis I identified the patient and participated in the time-out.: Yes Procedure Operation Date: 07/13/20 13:00 Actual Procedures Emergent Cystoscopy with left retrograde pyelogram, left urine aspiration, and Left Ureteral Stent Insertion - Chris Escoto, DO Surgeon Chris Escoto, II, DO Mandolin Repair Person None Estimated Blood Loss 0 Findings Consistent with Post-Op Diagnosis Stent draining well and appears to be in good position. Dark cloudy urine in left renal pelvis. Specimens Left Renal Pelvis Urine for culture. Drains 4.8 Fr Multilength stent on left. 16 Fr [place] Anesthesia Type Local Complications none Disposition Disposition: Recovery Room Indications Patient 30 weeks with hydronephrosis and obstruction. Developed severe fevers and onset of sepsis. Deemed emergent. Risks and benefits discussed at length. Description of Procedure Patient was consented and brought back to the operating room. Patient was placed on monitors with anesthesia and a monitor was attached with Counter Checker present and monitoring. Prior to the procedure Counter Checker completed a pelvic exam and found the patient's cervix closed. Patient was moved to the dorsal lithotomy position. Patient was prepped and draped in the regular sterile fashion. A time out was completed. Local lidocaine jelly was injected into the urethra. A 16 fr lancaster was placed and 20 cc of 1% lidocaine was placed into the bladder. A 30degree Cystoscope was placed into the bladder and the entire bladder was examined. The UO's were identified. The Left UO was cannulized with a catheter and advanced to the renal pelvis. A significant hydronephrotic drip was noted. Urine was aspirated. The catheter passed without significant resistance. Urine was dark and cloudy and sent for micro analysis. Approx 6 cc of contrast was placed in the renal pelvis. A wire was then placed. With the wire in place, a 4.8 Fr Double J stent was placed. Two single images were completed with fluoroscopy looking at the upper 2/3rd of the kidney and confirming placement of the stent. With the stent in place, the bladder was emptied. Significant drainage was noted. The scope was removed. A 16 Fr Silicon catheter was placed. The patient was cleaned, aroused from anesthesia, and transferred to the pacu in stable condition having tolerated the procedure well with no complications. I was present and participated in all aspects of the procedure. The patient will be monitored in the PACU until transferred. Plan to continue with acute management and care of septic patient. Has maximum drainage with left stent and lancaster catheter. Will continue antibiotics. Will alert Hospitalist team to discuss monitoring post operatively. I attest to the content of the Intraoperative Record and any orders documented therein. Any exceptions are noted below.
--- NOTE | 2020-07-13 14:09 | Obstetrical Progress Note ---
Date of Service July 13, 2020 Assessment & Plan Admission and Anticipated Discharge Date Admission Date: July 12, 2020 Subjective Procedure is completed by Dr Escoto with no complication. Placed a left sided catheter. I was in the OR room all the time. Patient tolerated well FHR was continuous ly monitored with myself and OB nurse watching before, during and after procedure 140-150's with good variability, accels+, no decels [place]: no ctxs VE done by myself before procedure: cervix closed, thick/ soft, high and posterior Will continue to monitor closely Results & Data ([facility]) Vital Signs (Past 12 Hours) Vital Signs Temp Pulse Pulse Resp BP BP Pulse Ox 07/13/20 12:29 38.7 C H 07/13/20 11:41 38.7 C H 07/13/20 10:10 39.0 C H 07/13/20 09:50 39.1 C H 114 H 40 H 134/83 07/13/20 09:15 37.5 C 114 H 40 H 134/83 07/13/20 07:54 37.0 C 106 H 18 115/74 95 07/13/20 03:49 37.1 C 98 H 18 105/60 97
--- NOTE | 2020-07-13 14:22 | Fluoroscopy Report ---
FL KUB CLINICAL HISTORY: Left-sided ureteral stent placement. COMPARISON STUDY: None. FLUOROSCOPY TIME: 2 seconds. FINDINGS: Single fluoroscopic spot image of the left side of the abdomen was submitted. Only the prox imal portion of the left ureteral stent is identified and likely in good position. IMPRESSION: Fluoroscopy provided for left ureteral stent placement. ACT 112: Negative or not required by law. Electronically signed by: Hero Castro M.D. 07/13/2020 2:20 PM
[2020-07-13] MEDS ORDERED: ePHEDrine sulfate 50 MG/ML AMP IV PRN (14:37)
[2020-07-13] MEDS ORDERED: ATROPINE SULFATE 0.1 MG/ML 10ML SYR IV PRN (14:37)
--- NOTE | 2020-07-13 14:37 | Anesthesiology Progress Note ---
Date of Service July 13, 2020 Anesthesia Post Procedure Vital Signs Vital Signs: Temp Pulse Pulse Pulse Resp BP BP 07/13/20 14:20 36.5 C 113 H 18 123/80 07/13/20 14:10 113 H 18 124/69 07/13/20 14:00 37.5 C 113 H 18 122/73 07/13/20 12:29 38.7 C H 07/13/20 11:41 38.7 C H 07/13/20 10:10 39.0 C H 07/13/20 09:50 39.1 C H 114 H 40 H 134/83 07/13/20 09:15 37.5 C 114 H 40 H 134/83 07/13/20 07:54 37.0 C 106 H 18 115/74 07/13/20 03:49 37.1 C 98 H 18 105/60 07/13/20 00:33 38 C H 16 116/47 L 07/12/20 18:21 37.0 C 98 H 16 117/65 07/12/20 18:17 37.0 C 98 H 18 117/65 07/12/20 17:59 96 H 18 143/64 H 07/12/20 17:58 95 H 18 143/64 H 07/12/20 17:05 112 H 18 145/79 H 07/12/20 15:51 88 20 126/68 07/12/20 14:46 100 H Pulse Ox 07/13/20 14:20 98 07/13/20 14:10 97 07/13/20 14:00 97 07/13/20 12:29 07/13/20 11:41 07/13/20 10:10 07/13/20 09:50 07/13/20 09:15 07/13/20 07:54 95 07/13/20 03:49 97 07/13/20 00:33 94 07/12/20 18:21 97 07/12/20 18:17 97 07/12/20 17:59 98 07/12/20 17:58 98 07/12/20 17:05 96 07/12/20 15:51 96 07/12/20 14:46 Pain Intensity Left Back: Pain Intensity: 9 Transfer of Care Handoff Completed per policy Notes Mental Status: alert / awake / arousable and participated in evaluation Patient Amnestic to Procedure: Yes Nausea / Vomiting: adequately controlled Pain: adequately controlled Airway Patency, RR, SpO2: stable & adequate BP & HR: stable & adequate Hydration State: stable & adequate Anesthetic Complications: no major complications apparent and Pt Satisfied with anesthetic care Notes: The patient is a 30 year old female with a history of Diabetes type II who is currently 31 weeks . The patient was admitted with hydronephrosis and underwent emergent cystoscopy with stent placement by Dr. Elias. monitoring was performed prior, during and after the procedure in recovery by Dr. Alegria and Genevieve the OB nurse. Dr. Alegria was present in the OR during the procedure. The tracing looked good the entire time with heart rates in the 130s to 150s. The procedure was done under local. The patient was only given 50mcg IV fentanyl for pain preoperatively and zofran 4mg IV. The patient is feeling well in recovery. Per the primary team, she will be transferred to PCU for close monitoring.
--- NOTE | 2020-07-13 14:52 | Obstetrical Progress Note ---
Date of Service July 13, 2020 Assessment & Plan Admission and Anticipated Discharge Date Admission Date: July 12, 2020 Subjective Patient is reevaluated in Recovery room Feels well, no complaints FHR reassuring [place] no ctxs Repeat NST in the evening Results & Data ([facility]) Vital Signs (Past 12 Hours) Vital Signs Temp Pulse Pulse Pulse Resp BP BP 07/13/20 14:40 110 H 20 134/72 07/13/20 14:30 112 H 16 137/80 07/13/20 14:20 36.5 C 113 H 18 123/80 07/13/20 14:10 113 H 18 124/69 07/13/20 14:00 37.5 C 113 H 18 122/73 07/13/20 12:29 38.7 C H 07/13/20 11:41 38.7 C H 07/13/20 10:10 39.0 C H 07/13/20 09:50 39.1 C H 114 H 40 H 134/83 07/13/20 09:15 37.5 C 114 H 40 H 134/83 07/13/20 07:54 37.0 C 106 H 18 115/74 07/13/20 03:49 37.1 C 98 H 18 105/60 Pulse Ox 07/13/20 14:40 95 07/13/20 14:30 96 07/13/20 14:20 98 07/13/20 14:10 97 07/13/20 14:00 97 07/13/20 12:29 07/13/20 11:41 07/13/20 10:10 07/13/20 09:50 07/13/20 09:15 07/13/20 07:54 95 07/13/20 03:49 97
[2020-07-13] MEDS: PIPERACILLIN/TAZOBACTAM 4.5 GM in DEXTROSE 5% 100 ML IV SCH (17:28)
--- NOTE | 2020-07-13 19:24 | Hospitalist Progress Note ---
Date of Service July 13, 2020 Assessment & Plan (1) Left flank pain: (2) Hydronephrosis: Febrile Present on admission with left rene pain Renal US: Mild to moderate left hydronephrosis which may be due to to mass effect upon the ureter by the gravid uterus or occult ureteral calculus. Mild right collecting system dilatation. Probable small right renal calculus. lab on admission showed WBC: 24. UA: trace blood, trace leuk esterase, 1+bacteria, >30 epithelial has been on IV Rocephin on admission abx was changed to IV Zosyn since pt was febrile WBC improved to 17K Urology on board S/P Emergent Cystoscopy with left retrograde pyelogram, left urine aspiration, and Left Ureteral Stent Insertion by Dr. Escoto today Blood cx no growth urine cx pending Continue pain control Continue IVF (3) : 30 weeks gestation Reports sensation movement. Denies vaginal bleeding or discharge. Was evaluated outpatient OB clinic with reported no signs pre-term labor OBgyn on board case discussed with Dr. Nadeem Brunson (4) Hypokalemia: K: 2.9 today K replaced Continue monitor BMP (5) Hypomagnesemia: Magnesium: 1.7 Continue monitor Mg (6) Diabetes mellitus, type II: A1c: 5.2 in 04/26/20 Continue to hold home insulin Basal bolus insulin per protocol DVT Prophylaxis SCDs Full Code Disposition Transfer to PCU to monitor Admission and Anticipated Discharge Date Admission Date: July 12, 2020 Subjective Pt was seen and examined for follow of left rene pain Sitting at the edge of the bed getting ready to eat her meal She had stent place early today by urology She said that her pain improves Denies any chest pain, palpitation, dizziness and SOB Review of Systems Review of Systems: All systems reviewed & are unremarkable except as noted in Subjective Physical Exam Physical Exam: General: no distress, obese Head: normocephalic, atraumatic Eyes: conjunctiva non-injected, anicteric ENT: normal inspection external ears, nose, mucous membranes moist Neck: supple, trachea midline, non-tender Lungs: clear, no respiratory distress, no wheezing/rhonchi/rales CV: RRR, no murmur, no pretibial edema Abd: +gravid uterus, normal BS, mild left CVA tenderness to palpation, otherwise abdomen non-tender to palpation at this time Ext: no cyanosis, no calf tenderness Neuro: A&O x 3, no focal deficits noted, normal affect Skin: warm, dry Results & Data Results & Data ([facility]) Vital Signs (Past 12 Hours) Vital Signs Temp Pulse Pulse Pulse Resp BP BP 07/13/20 18:51 36.6 C 93 H 18 87/53 L 07/13/20 18:36 119 H 07/13/20 17:40 104 H 18 109/68 07/13/20 16:53 37.7 C H 07/13/20 16:40 122 H 20 117/68 07/13/20 16:10 122 H 18 124/73 07/13/20 15:40 39.0 C H 123 H 18 107/64 07/13/20 15:20 112 H 20 113/68 07/13/20 15:05 110 H 20 109/72 07/13/20 14:50 119 H 20 128/73 07/13/20 14:40 110 H 20 134/72 07/13/20 14:30 112 H 16 137/80 07/13/20 14:20 36.5 C 113 H 18 123/80 07/13/20 14:10 113 H 18 124/69 07/13/20 14:00 37.5 C 113 H 18 122/73 07/13/20 12:29 38.7 C H 07/13/20 11:41 38.7 C H 07/13/20 10:10 39.0 C H 07/13/20 09:50 39.1 C H 114 H 40 H 134/83 07/13/20 09:15 37.5 C 114 H 40 H 134/83 07/13/20 07:54 37.0 C 106 H 18 115/74 Pulse Ox 07/13/20 18:51 94 07/13/20 18:36 07/13/20 17:40 95 07/13/20 16:53 07/13/20 16:40 91 07/13/20 16:10 93 07/13/20 15:40 95 07/13/20 15:20 94 07/13/20 15:05 96 07/13/20 14:50 98 07/13/20 14:40 95 07/13/20 14:30 96 07/13/20 14:20 98 07/13/20 14:10 97 07/13/20 14:00 97 07/13/20 12:29 07/13/20 11:41 07/13/20 10:10 07/13/20 09:50 07/13/20 09:15 07/13/20 07:54 95 (1) Hydronephrosis Hydronephrosis type: unspecified Qualified Code(s): N13.30 - Unspecified hydronephrosis (2) Weeks of gestation: 30 weeks Qualified Code(s): Z3A.30 - 30 weeks gestation of
[2020-07-13] MEDS ORDERED: SODIUM CHLORIDE 0.9% 1000ML 1,000 ML IV SCH (19:30)
[2020-07-13 20:31] LABS: Potassium 3.1 mmol/L (3.5-5.1)
[2020-07-13 20:33] LABS: Magnesium 2.1 mg/dl (1.8-2.4)
[2020-07-13] MEDS ORDERED: SODIUM CHLORIDE 0.9% 1000ML 500 ML IV ONE (22:21)
--- NOTE | 2020-07-13 22:54 | Obstetrical Progress Note ---
Date of Service July 13, 2020 Assessment & Plan Admission and Anticipated Discharge Date Admission Date: July 12, 2020 Subjective Patient had another NST FHR baseline was 105-110's with 15x15 accels and variability, no decels No ctxs on monitor Patient has no complaints Her pain is much better Has not taken any pain meds since cystoscopy ( was given only 50 mg of fentanyl during procedure) She reports good movement She was started on IVF bolus, nasal O2, on left lateral side Bed side US: Breech, AFV normal, Multiple FM's seen, FHR 120-130's Will continue to monitor closely and obtain BPP Results & Data ([facility]) Vital Signs (Past 12 Hours) Vital Signs Temp Pulse Pulse Resp BP Pulse Ox 07/13/20 22:36 100/68 07/13/20 18:51 36.6 C 93 H 18 87/53 L 94 07/13/20 18:36 119 H 07/13/20 17:40 104 H 18 109/68 95 07/13/20 16:53 37.7 C H 07/13/20 16:40 122 H 20 117/68 91 07/13/20 16:10 122 H 18 124/73 93 07/13/20 15:40 39.0 C H 123 H 18 107/64 95 07/13/20 15:20 112 H 20 113/68 94 07/13/20 15:05 110 H 20 109/72 96 07/13/20 14:50 119 H 20 128/73 98 07/13/20 14:40 110 H 20 134/72 95 07/13/20 14:30 112 H 16 137/80 96 07/13/20 14:20 36.5 C 113 H 18 123/80 98 07/13/20 14:10 113 H 18 124/69 97 07/13/20 14:00 37.5 C 113 H 18 122/73 97 07/13/20 12:29 38.7 C H 07/13/20 11:41 38.7 C H
[2020-07-14] MEDS ORDERED: POTASSIUM CHLORIDE 40 MEQ in SODIUM CHLORIDE 0.9% 1000ML 1,000 ML IV ONE
[2020-07-14] MEDS: PIPERACILLIN/TAZOBACTAM 4.5 GM in DEXTROSE 5% 100 ML IV SCH ×2 (00:09→08:05)
--- NOTE | 2020-07-14 00:18 | Obstetrical Progress Note ---
Date of Service July 14, 2020 Assessment & Plan Admission and Anticipated Discharge Date Admission Date: July 12, 2020 Subjective BPP is done by US tech at bed side: 11/10 Multiple FM's and breathing seen and good tone AFV normal FHR was documented as 129 bpm. I spoke with MFM from [facility] [place] and recommended continuous monitoring due to recent change/ drop in baseline. They recommend monitoring as long as baseline is above 105, with normal variability and no decels They do not recommend steroids series for FLM No s/s of PTL Maternal VSS, Afebrile I discussed with hospitalist, Dr De Jesus and he is okay her to be off cardiac monitoring and transfer to L&D for continuous monitoring. Results & Data ([facility]) Vital Signs (Past 12 Hours) Vital Signs Temp Pulse Pulse Resp BP Pulse Ox 07/13/20 23:31 36.6 C 85 18 111/70 99 07/13/20 22:36 100/68 07/13/20 18:51 36.6 C 93 H 18 87/53 L 94 07/13/20 18:36 119 H 07/13/20 17:40 104 H 18 109/68 95 07/13/20 16:53 37.7 C H 07/13/20 16:40 122 H 20 117/68 91 07/13/20 16:10 122 H 18 124/73 93 07/13/20 15:40 39.0 C H 123 H 18 107/64 95 07/13/20 15:20 112 H 20 113/68 94 07/13/20 15:05 110 H 20 109/72 96 07/13/20 14:50 119 H 20 128/73 98 07/13/20 14:40 110 H 20 134/72 95 07/13/20 14:30 112 H 16 137/80 96 07/13/20 14:20 36.5 C 113 H 18 123/80 98 07/13/20 14:10 113 H 18 124/69 97 07/13/20 14:00 37.5 C 113 H 18 122/73 97 07/13/20 12:29 38.7 C H
[2020-07-14] MEDS ORDERED: ACETAMINOPHEN 325 MG TAB PO PRN ×2 (01:09→01:10)
[2020-07-14 06:34] LABS: Hematocrit (blood only) 30.8 % (37-47); Hemoglobin 10.8 g/dL (12.0-16.0); Mean Corpuscular Hemoglobin 30.9 pg (25-34); Mean Corpuscular Hgb Conc 35.1 g/dL (32-36); Mean Corpuscular Volume 88.3 fL (80-100); Platelet Count 155 K/uL (130-400); RDW Coefficient of Variation 13.7 % (11.5-14.5); RDW Standard Deviation 44.5 fL (36.4-46.3); Red Blood Count 3.49 M/uL (4.2-5.4); White Blood Count 10.65 K/uL (4.8-10.8)
[2020-07-14 07:04] LABS: BUN Creatinine Ratio 12.6 (10-20); Calcium 8.4 mg/dl (8.5-10.1); Creatinine Clr Calc Pharmacy 142.5 ml/min; Est GFR (African American) 143.4; Est GFR (Non-African American) 123.7; Magnesium 1.9 mg/dl (1.8-2.4); Potassium 3.3 mmol/L (3.5-5.1)
[2020-07-14] MEDS: PRENATAL VITAMIN 1 TAB PO SCH (08:15)
[2020-07-14] MEDS ORDERED: LACTATED RINGER'S 1,000 ML IV SCH (08:30)
--- NOTE | 2020-07-14 10:06 | Ultrasound Report ---
US OB BPP wo NST single CLINICAL HISTORY: lower baseline, s/p surgery COMPARISON STUDY: No previous studies for comparison. FINDINGS: Single viable intrauterine gestation is noted. heart rate is normal at 129 bpm. Elizabeth l tone, breathing and movements were noted. Amniotic fluid index is 17.7 cm. Position is transv erse. head is on maternal right. Placenta is located within the right aspect of the fundus. No placental abnormality is identified. Please note that a dedicated anatomical survey was not per formed. IMPRESSION: 1. Single viable intrauterine gestation with normal heart rate of 129 bpm. 2. Normal biophysical profile of 8 out of 8. 3. Transverse position. ACT 112: Negative or not required by law. Electronically signed by: Joao Whatley M.D. 07/14/2020 10:04 AM
[2020-07-14] MEDS ORDERED: DEXTROSE 50% 50 ML SYRINGE IV PRN (11:08)
[2020-07-14] MEDS ORDERED: GLUCAGON FOR INJ 1 MG VIAL SQ PRN (11:08)
[2020-07-14] MEDS ORDERED: GLUCOSE 10 TABS/TUBE PO PRN (11:08)
[2020-07-14] MEDS ORDERED: GLUCOSE 40% GEL 15 GM TUBE PO PRN (11:08)
[2020-07-14] MEDS ORDERED: CARBOHYDRATES FOR HYPOGLYCEMIA PO PRN (11:08)
--- NOTE | 2020-07-14 11:24 | Obstetrical Progress Note ---
Date of Service July 14, 2020 Assessment & Plan Admission and Anticipated Discharge Date Admission Date: July 12, 2020 Subjective Doing better today tolerating diet FHT Cat 1 awaiting medicine consult for insulin management urology f/u pending OK for discharge from OB standpoint if OK with hospitalist and urologist. Physical Exam Constitutional: WD/WN, vitals as above well developed and comfortable Results & Data ([facility]) Vital Signs (Past 12 Hours) Vital Signs Temp Pulse Pulse Resp BP BP Pulse Ox 07/14/20 11:10 36.5 C 77 18 109/57 L 07/14/20 07:29 36.5 C 20 07/14/20 07:26 36.5 C 79 16 108/59 L 07/14/20 04:04 36.9 C 97 H 20 124/62 07/14/20 00:38 36.6 C 20 07/13/20 23:31 36.6 C 85 18 111/70 99 Laboratory Results 07/12/20 07/12/20 07/12/20 14:28 14:28 14:38 WBC 24.82 H RBC 3.73 L Hgb 11.6 L Hct 31.8 L MCV 85.3 MCH 31.1 MCHC 36.5 H RDW Std Deviation 41.7 RDW Coeff of Maureen 13.5 Plt Count 178 MPV 11.0 H Immature Gran % (Auto) 0.3 Neut % (Auto) 87.3 Lymph % (Auto) 6.6 [place] % (Auto) 5.7 Eos % (Auto) 0.1 Baso % (Auto) 0.0 Neut # (Auto) 21.65 H Lymph # (Auto) 1.64 [place] # (Auto) 1.41 H Eos # (Auto) 0.03 Baso # (Auto) 0.01 Immature Gran # (Auto) 0.08 H Sodium 139 Potassium 2.7 L Chloride 107 Carbon Dioxide 23 Anion Gap 9.0 BUN 10 Creatinine 0.86 Est Cr Clr Drug Dosing 95.9 Est GFR ( Amer) 105.1 Est GFR (Non-Af Amer) 90.7 BUN/Creatinine Ratio 11.8 Glucose 84 POC Glucose Calcium 8.5 Magnesium 1.6 L Total Bilirubin 0.5 AST 13 L ALT 17 Alkaline Phosphatase 98 Total Protein 6.6 Albumin 2.5 L Globulin 4.1 H Albumin/Globulin Ratio 0.6 L Lipase 84 Urine Color Yellow Urine Appearance Clear Urine pH 7.0 Ur Specific [place] 1.016 Urine Protein Trace H Urine Glucose (UA) Negative Urine Ketones 3+ H Urine Blood Trace H Urine Nitrite Negative Urine Bilirubin Negative Urine Urobilinogen Negative Ur Leukocyte Esterase Trace H Urine WBC (Auto) 5-10 H Urine RBC (Auto) 5-10 H U Hyaline Cast (Auto) 1-5 U Epithel Cells (Auto) >30 H Urine Bacteria (Auto) 1+ H COVID-19 Eval Order SARS-CoV-2 (PCR) Influenza Type A (PCR) Influenza Type B (PCR) RSV (RT-PCR) 07/12/20 07/12/20 07/12/20 16:34 16:34 19:20 WBC RBC Hgb Hct MCV MCH MCHC RDW Std Deviation RDW Coeff of Maureen Plt Count MPV Immature Gran % (Auto) Neut % (Auto) Lymph % (Auto) [place] % (Auto) Eos % (Auto) Baso % (Auto) Neut # (Auto) Lymph # (Auto) [place] # (Auto) Eos # (Auto) Baso # (Auto) Immature Gran # (Auto) Sodium Potassium Chloride Carbon Dioxide Anion Gap BUN Creatinine Est Cr Clr Drug Dosing Est GFR ( Amer) Est GFR (Non-Af Amer) BUN/Creatinine Ratio Glucose POC Glucose 89 Calcium Magnesium Total Bilirubin AST ALT Alkaline Phosphatase Total Protein Albumin Globulin Albumin/Globulin Ratio Lipase Urine Color Urine Appearance Urine pH Ur Specific [place] Urine Protein Urine Glucose (UA) Urine Ketones Urine Blood Urine Nitrite Urine Bilirubin Urine Urobilinogen Ur Leukocyte Esterase Urine WBC (Auto) Urine RBC (Auto) U Hyaline Cast (Auto) U Epithel Cells (Auto) Urine Bacteria (Auto) COVID-19 Eval Order CovFluRsv at [facility] SARS-CoV-2 (PCR) NEGATIVE Influenza Type A (PCR) Negative Influenza Type B (PCR) Negative RSV (RT-PCR) Negative 07/12/20 07/13/20 07/13/20 20:59 05:54 05:54 WBC 17.92 H RBC 3.54 L Hgb 10.8 L Hct 31.0 L MCV 87.6 MCH 30.5 MCHC 34.8 RDW Std Deviation 43.1 RDW Coeff of Maureen 13.4 Plt Count 147 MPV 11.3 H Immature Gran % (Auto) 0.4 Neut % (Auto) 87.5 Lymph % (Auto) 5.9 [place] % (Auto) 6.0 Eos % (Auto) 0.1 Baso % (Auto) 0.1 Neut # (Auto) 15.70 H Lymph # (Auto) 1.06 L [place] # (Auto) 1.07 H Eos # (Auto) 0.01 Baso # (Auto) 0.01 Immature Gran # (Auto) 0.07 H Sodium 138 Potassium 2.9 L Chloride 108 H Carbon Dioxide 21 Anion Gap 9.0 BUN 8 Creatinine 1.03 Est Cr Clr Drug Dosing 80.1 Est GFR ( Amer) 84.5 Est GFR (Non-Af Amer) 72.9 BUN/Creatinine Ratio 7.5 L Glucose 102 H POC Glucose 133 H Calcium 7.8 L Magnesium 1.7 L Total Bilirubin AST ALT Alkaline Phosphatase Total Protein Albumin Globulin Albumin/Globulin Ratio Lipase Urine Color Urine Appearance Urine pH Ur Specific [place] Urine Protein Urine Glucose (UA) Urine Ketones Urine Blood Urine Nitrite Urine Bilirubin Urine Urobilinogen Ur Leukocyte Esterase Urine WBC (Auto) Urine RBC (Auto) U Hyaline Cast (Auto) U Epithel Cells (Auto) Urine Bacteria (Auto) COVID-19 Eval Order SARS-CoV-2 (PCR) Influenza Type A (PCR) Influenza Type B (PCR) RSV (RT-PCR) 07/13/20 07/13/20 07/13/20 08:16 12:22 13:13 WBC RBC Hgb Hct MCV MCH MCHC RDW Std Deviation RDW Coeff of Maureen Plt Count MPV Immature Gran % (Auto) Neut % (Auto) Lymph % (Auto) [place] % (Auto) Eos % (Auto) Baso % (Auto) Neut # (Auto) Lymph # (Auto) [place] # (Auto) Eos # (Auto) Baso # (Auto) Immature Gran # (Auto) Sodium Potassium Chloride Carbon Dioxide Anion Gap BUN Creatinine Est Cr Clr Drug Dosing Est GFR ( Amer) Est GFR (Non-Af Amer) BUN/Creatinine Ratio Glucose POC Glucose 114 H 124 H 112 H Calcium Magnesium Total Bilirubin AST ALT Alkaline Phosphatase Total Protein Albumin Globulin Albumin/Globulin Ratio Lipase Urine Color Urine Appearance Urine pH Ur Specific [place] Urine Protein Urine Glucose (UA) Urine Ketones Urine Blood Urine Nitrite Urine Bilirubin Urine Urobilinogen Ur Leukocyte Esterase Urine WBC (Auto) Urine RBC (Auto) U Hyaline Cast (Auto) U Epithel Cells (Auto) Urine Bacteria (Auto) COVID-19 Eval Order SARS-CoV-2 (PCR) Influenza Type A (PCR) Influenza Type B (PCR) RSV (RT-PCR) 07/13/20 07/13/20 07/13/20 14:05 16:52 19:53 WBC RBC Hgb Hct MCV MCH MCHC RDW Std Deviation RDW Coeff of Maureen Plt Count MPV Immature Gran % (Auto) Neut % (Auto) Lymph % (Auto) [place] % (Auto) Eos % (Auto) Baso % (Auto) Neut # (Auto) Lymph # (Auto) [place] # (Auto) Eos # (Auto) Baso # (Auto) Immature Gran # (Auto) Sodium Potassium 3.1 L Chloride Carbon Dioxide Anion Gap BUN Creatinine Est Cr Clr Drug Dosing Est GFR ( Amer) Est GFR (Non-Af Amer) BUN/Creatinine Ratio Glucose POC Glucose 110 H 96 Calcium Magnesium 2.1 Total Bilirubin AST ALT Alkaline Phosphatase Total Protein Albumin Globulin Albumin/Globulin Ratio Lipase Urine Color Urine Appearance Urine pH Ur Specific [place] Urine Protein Urine Glucose (UA) Urine Ketones Urine Blood Urine Nitrite Urine Bilirubin Urine Urobilinogen Ur Leukocyte Esterase Urine WBC (Auto) Urine RBC (Auto) U Hyaline Cast (Auto) U Epithel Cells (Auto) Urine Bacteria (Auto) COVID-19 Eval Order SARS-CoV-2 (PCR) Influenza Type A (PCR) Influenza Type B (PCR) RSV (RT-PCR) 07/13/20 07/14/20 07/14/20 20:55 06:08 06:08 WBC 10.65 RBC 3.49 L Hgb 10.8 L Hct 30.8 L MCV 88.3 MCH 30.9 MCHC 35.1 RDW Std Deviation 44.5 RDW Coeff of Maureen 13.7 Plt Count 155 MPV 11.0 H Immature Gran % (Auto) Neut % (Auto) Lymph % (Auto) [place] % (Auto) Eos % (Auto) Baso % (Auto) Neut # (Auto) Lymph # (Auto) [place] # (Auto) Eos # (Auto) Baso # (Auto) Immature Gran # (Auto) Sodium 140 Potassium 3.3 L Chloride 111 H Carbon Dioxide 21 Anion Gap 8.0 BUN 7 Creatinine 0.58 L D Est Cr Clr Drug Dosing 142.5 Est GFR ( Amer) 143.4 Est GFR (Non-Af Amer) 123.7 BUN/Creatinine Ratio 12.6 Glucose 83 POC Glucose 106 H Calcium 8.4 L Magnesium 1.9 Total Bilirubin AST ALT Alkaline Phosphatase Total Protein Albumin Globulin Albumin/Globulin Ratio Lipase Urine Color Urine Appearance Urine pH Ur Specific [place] Urine Protein Urine Glucose (UA) Urine Ketones Urine Blood Urine Nitrite Urine Bilirubin Urine Urobilinogen Ur Leukocyte Esterase Urine WBC (Auto) Urine RBC (Auto) U Hyaline Cast (Auto) U Epithel Cells (Auto) Urine Bacteria (Auto) COVID-19 Eval Order SARS-CoV-2 (PCR) Influenza Type A (PCR) Influenza Type B (PCR) RSV (RT-PCR)
[2020-07-14] MEDS ORDERED: INSULIN GLARGINE SOLOSTAR 100 UNITS/ML 3 ML PEN SC SCH (11:30)
[2020-07-14] MEDS: INSULIN ASPART 100 UNITS/ML 3 ML PEN SC SCH ×2 (13:14→17:33)
[2020-07-14] MEDS ORDERED: POTASSIUM CHLORIDE CRTAB 20 MEQ TABCR PO STA (14:14)
--- NOTE | 2020-07-14 17:12 | Hospitalist Progress Note ---
Date of Service July 14, 2020 Assessment & Plan (1) Left flank pain: (2) Hydronephrosis: Febrile Present on admission with left rene pain Renal US: Mild to moderate left hydronephrosis which may be due to to mass effect upon the ureter by the gravid uterus or occult ureteral calculus. Mild right collecting system dilatation. Probable small right renal calculus. lab on admission showed WBC: 24. UA: trace blood, trace leuk esterase, 1+bacteria, >30 epithelial has been on IV Rocephin on admission abx was changed to IV Zosyn since pt was febrile WBC normalize and has been afebrile for over 24hrs Urology on board S/P day #1 Emergent Cystoscopy with left retrograde pyelogram, left urine aspiration, and Left Ureteral Stent Insertion by Dr. Escoto today Blood cx no growth urinie cx showed multiple organisms (Possible contamination ) Case discussed with urology recommended a short course of PO abx since pt just has the stent place and was febrile on admission Follow up with urology next week for stent removal Ok from urology standpoint to discharge home (3) : 30 weeks gestation Reports sensation movement. Denies vaginal bleeding or discharge. Was evaluated outpatient OB clinic with reported no signs pre-term labor OBgyn on board Ok from OBGYN to discharge home Stable (4) Hypokalemia: K: 3.3 today K replaced Will advised pt to increase potassium supplement on diet Continue k supplement on discharge Check BMP in 1 week to monitor K supplement (5) Hypomagnesemia: Magnesium: 1.9 Continue monitor Mg (6) Diabetes mellitus, type II: A1c: 5.2 in 04/26/20 Pt had Lantus 10 units this morning Spoke to pharmacy that recommended lantus 10 units tonight, then tomorrow Pt can resume her outpatient dose On Insulin sliding scale with novolog DVT Prophylaxis SCDs Full Code Disposition Discharge home today Admission and Anticipated Discharge Date Admission Date: July 12, 2020 Subjective Pt was seen and examined for follow up of left flank pain Lying in bed with no distress Pt said that she feels much better She said that she does not have any pain Denies any chest pain, palpitation, dizziness and SOB Review of Systems Review of Systems: All systems reviewed & are unremarkable except as noted in Subjective Physical Exam Physical Exam: General: no distress, obese Head: normocephalic, atraumatic Eyes: conjunctiva non-injected, anicteric ENT: normal inspection external ears, nose, mucous membranes moist Neck: supple, trachea midline, non-tender Lungs: clear, no respiratory distress, no wheezing/rhonchi/rales CV: RRR, no murmur, no pretibial edema Abd: +gravid uterus, normal BS, mild left CVA tenderness to palpation, otherwise abdomen non-tender to palpation at this time Ext: no cyanosis, no calf tenderness Neuro: A&O x 3, no focal deficits noted, normal affect Skin: warm, dry Results & Data Results & Data ([facility]) Vital Signs (Past 12 Hours) Vital Signs Temp Pulse Pulse Resp BP BP Pulse Ox 07/14/20 16:41 36.4 C L 18 07/14/20 15:39 36.5 C 85 16 111/70 94 07/14/20 14:33 36.5 C 86 16 109/63 94 07/14/20 11:10 36.5 C 77 18 109/57 L 95 07/14/20 07:29 36.5 C 20 07/14/20 07:26 36.5 C 79 16 108/59 L 94 (1) Hydronephrosis Hydronephrosis type: unspecified Qualified Code(s): N13.30 - Unspecified hydronephrosis (2) Weeks of gestation: 30 weeks Qualified Code(s): Z3A.30 - 30 weeks gestation of
--- NOTE | 2020-07-14 17:12 | Discharge Summary ---
Date of Service July 14, 2020 Admission HPI Per Admitting Provider Pt is 30 y/o F with PMH DM II, obesity, currently 30 weeks gestation, gestational diabetes presented to ER with c/o Left flank pain since last night. Reports sudden onset sharp left flank pain radiating to left lower abdomen last night. Had nausea and vomited once. Feels like no fully emptying bladder when urinating the past day. Was seen outpatient at [facility] and reports no signs of pre-term labor. Pt reports this pain does not feel like prior labor pains. Denies h/o kidney stones in past. No prior treatment attempted. Did not eat or drink today. Reports feeling baby move as usual. Denies any contractions. Denies fever/chills, diaphoresis, hematemesis, diarrhea, constipation, dysuria, hematuria, urinary frequency or urgency, MELCHOR, dizziness, syncope, vision changes, neck pain, CP, SOB, orthopnea, palpitations, cough, sore throat, choking, otalgia, rhinorrhea, paresthesias, weakness, extremity weakness, extremity edema, rashes, vaginal bleeding or discharge. Admission Exam Per Admitting Provider General: no distress, obese Head: normocephalic, atraumatic Eyes: conjunctiva non-injected, anicteric ENT: normal inspection external ears, nose, mucous membranes moist Neck: supple, trachea midline, non-tender Lungs: clear, no respiratory distress, no wheezing/rhonchi/rales CV: RRR, no murmur, no pretibial edema Abd: +gravid uterus, normal BS, mild left CVA tenderness to palpation, otherwise abdomen non-tender to palpation at this time Ext: no cyanosis, no calf tenderness Neuro: A&O x 3, no focal deficits noted, normal affect Skin: warm, dry Principal Diagnosis Hydronephrosis Kidney stone Diabetes Discharge Exam General: no distress, obese Head: normocephalic, atraumatic Eyes: conjunctiva non-injected, anicteric ENT: normal inspection external ears, nose, mucous membranes moist Neck: supple, trachea midline, non-tender Lungs: clear, no respiratory distress, no wheezing/rhonchi/rales CV: RRR, no murmur, no pretibial edema Abd: +gravid uterus, normal BS, mild left CVA tenderness to palpation, otherwise abdomen non-tender to palpation at this time Ext: no cyanosis, no calf tenderness Neuro: A&O x 3, no focal deficits noted, normal affect Skin: warm, dry Discharge Data Allergies Allergy/AdvReac Type Severity Reaction Status Date / Time No Known Allergies Allergy Verified 07/12/20 15:21 Consultations 07/12/20 18:15 Consult Urology Routine Procedures Performed Operation Date: 07/13/20 13:00 Actual Procedures p Ureteral Stent Insertion/Removal(Left) - Chris Escoto, Ordered Studies 07/12/20 14:21 US renal/blad retro comp Stat 07/13/20 10:35 US renal/blad retro comp Urgent 07/13/20 13:10 FL KUB Routine 07/13/20 22:51 US OB BPP wo NST single Urgent US OB BPP wo NST single CLINICAL HISTORY: lower baseline, s/p surgery COMPARISON STUDY: No previous studies for comparison. FINDINGS: Single viable intrauterine gestation is noted. heart rate is normal at 129 bpm. Normal tone, breathing and movements were noted. Amniotic fluid index is 17.7 cm. Position is transverse. head is on maternal right. Placenta is located within the right aspect of the fundus. No placental abnormality is identified. Please note that a dedicated anatomical survey was not performed. IMPRESSION: 1. Single viable intrauterine gestation with normal heart rate of 129 bpm. 2. Normal biophysical profile of 8 out of 8. 3. Transverse position. ACT 112: Negative or not required by law. Electronically signed by: Joao Whatley M.D. 07/14/2020 10:04 AM Dictated: 07/14/20 1002Transcribed: 07/14/20 1002 FL KUB CLINICAL HISTORY: Left-sided ureteral stent placement. COMPARISON STUDY: None. FLUOROSCOPY TIME: 2 seconds. FINDINGS: Single fluoroscopic spot image of the left side of the abdomen was submitted. Only the proximal portion of the left ureteral stent is identified and likely in good position. IMPRESSION: Fluoroscopy provided for left ureteral stent placement. ACT 112: Negative or not required by law. Electronically signed by: Hero Castro M.D. 07/13/2020 2:20 PM Dictated: 07/13/20 1419Transcribed: 07/13/20 1419 RENAL ULTRASOUND HISTORY: Left flank pain. Follow-up hydronephrosis. COMPARISON: Renal ultrasound 07/12/2020. FINDINGS: Right kidney: 12.8 cm. Mild hydronephrosis, unchanged. Normal corticomedullary differentiation and cortical thickness. Left kidney: 13.7 cm. Mild to moderate hydronephrosis, unchanged. A 1.6 cm upper pole cyst. Bladder: No bladder wall thickening. Only the right ureteral jet was identified this time. IMPRESSION: 1. Mild right and mild to moderate left hydronephrosis, unchanged. 2. No bladder wall thickening. ACT 112: Negative or not required by law. Electronically signed by: Hero Castro M.D. 07/13/2020 12:47 PM Dictated: 07/13/20 1245Transcribed: 07/13/201244 RENAL ULTRASOUND CLINICAL HISTORY: left flank pain, + preg, eval stone COMPARISON STUDY: None. TECHNIQUE: Sonography of the kidneys and the urinary bladder was performed. FINDINGS: Right kidney measures 12.8 x 5.2 x 6.6 cm and the left measures 13.7 x 6.8 x 6.8 cm. There is mild to moderate left hydronephrosis. There is mild right collecting system dilatation. Note is made of a 1.7 cm left renal cyst. There is a probable 4 mm right renal calculus. Right ureteral jet was visualized. The left ureteral jet was not identified. Incidental note is made of gallstones within the gallbladder without gallbladder wall thickening. IMPRESSION: 1. Mild to moderate left hydronephrosis which may be due to to mass effect upon the ureter by the gravid uterus or occult ureteral calculus. Mild right collecting system dilatation. 2. Probable small right renal calculus. 3. Cholelithiasis. No evidence for acute cholecystitis. ACT 112: Negative or not required by law. Electronically signed by: Joao Whatley M.D. 07/12/2020 3:35 PM Dictated: 07/12/20 1532Transcribed: 07/12/20 1532 Hospital Course (1) Left flank pain: (2) Hydronephrosis: Febrile Present on admission with left rene pain Renal US: Mild to moderate left hydronephrosis which may be due to to mass effect upon the ureter by the gravid uterus or occult ureteral calculus. Mild right collecting system dilatation. Probable small right renal calculus. lab on admission showed WBC: 24. UA: trace blood, trace leuk esterase, 1+bacteria, >30 epithelial has been on IV Rocephin on admission abx was changed to IV Zosyn since pt was febrile WBC normalize and has been afebrile for over 24hrs Urology on board S/P day #1 Emergent Cystoscopy with left retrograde pyelogram, left urine aspiration, and Left Ureteral Stent Insertion by Dr. Escoto today Blood cx no growth urinie cx showed multiple organisms (Possible contamination ) Case discussed with urology recommended a short course of PO abx since pt just has the stent place and was febrile on admission Follow up with urology next week for stent removal Ok from urology standpoint to discharge home (3) : 30 weeks gestation Reports sensation movement. Denies vaginal bleeding or discharge. Was evaluated outpatient OB clinic with reported no signs pre-term labor OBgyn on board Ok from OBGYN to discharge home Stable (4) Hypokalemia: K: 3.3 today K replaced Will advised pt to increase potassium supplement on diet Continue k supplement on discharge Check BMP in 1 week to monitor K supplement (5) Hypomagnesemia: Magnesium: 1.9 Continue monitor Mg (6) Diabetes mellitus, type II: A1c: 5.2 in 04/26/20 Pt had Lantus 10 units this morning Spoke to pharmacy that recommended lantus 10 units tonight, then tomorrow Pt can resume her outpatient dose On Insulin sliding scale with novolog DVT Prophylaxis SCDs Full Code Disposition Discharge home today Total Time Total Time Spent Total Time Spent (In Minutes): 35 minutes Total Time Includes: Examination of the Patient, Discharge Planning, Medication Reconciliation, Communication With Other Providers and Other Discharge Plan Discharge Items Patient Disposition: Home - Self-Care Reason For Visit: FLANK PAIN, HYDRONEPHROSIS Discharge Diagnosis: hydronephrosis kidney stone diabetes Condition on Discharge: Good Activity: As commented below Lifting: No more than 10 pounds Bathing: No limitations Sexual Activity: Wait until after follow-up appointment Exercise/Sports: Gradually increase as tolerated Driving/Machine Use: Resume 3 days after discharge Non-emergency contact: Primary Care Provider and Urologist Call non-emergency contact if: your symptoms worsen and your pain is not controlled Follow-up/Referrals: Willie Tamayo [Primary Care Provider] - Diet: Carb Count or DM1 Addtl Attending Provider Instructions: follow up with urologist next week in office Follow up with your primary care provider within 1 week Follow up with OBGYN Check BMP and magnesium in 1 week to monitor your electrolytes (your provider will order the lab) Continue potassium supplement Continue monitor your blood sugar and bring your blood sugar log at your next follow up appointment with your provider Since 10 units of Lantus was administered early today, please take 10 units tonight, then resume your regular home Lantus dose tomorrow Pending Studies at Discharge: No Stand-Alone Forms: My [facility], Smoking Cessation Medications and DC Order Prescriptions: New potassium chloride 20 mEq tablet extended release 20 meq PO DAILY Qty: 30 RF: 0 Continued Vitamin 27 mg iron- 800 mcg Tablet 800 tab PO DAILY RF: 0 insulin aspart U-100 [Novolog Flexpen U-100 Insulin] 100 unit/mL (3 mL) insulin pen 11 unit SUBCUT .BEFORE DINNER RF: 0 Lantus Solostar U-100 Insulin 100 unit/mL (3 mL) insulin pen 37 unit SUBCUT HS RF: 0 Discharge Orders: Discharge Order (Routine); Ordered 07/14/20 Ordered By: Ryne Vogel Admission Data Admit Date/Time: 07/12/20 16:39 Attending Provider: Krystyna Clement Admit Provider: Krystyna Clement Primary Care Provider: Willie Tamayo Other Providers: Chris Escoto Other Interventions: Discharge Summary Assessment (RN) Last Done: 07/14/20 17:34
[2020-07-14] MEDS ORDERED: AMOXICILLIN 500 MG CAP PO SCH (21:00)
[2020-07-15] MEDS ORDERED: ACETAMINOPHEN 325 MG TAB PO PRN (18:00)
--- NOTE | 2020-07-28 16:32 | Coding Query ---
To promote full compliance with coding requirements relating to patient care, provider participation is requested in all cases of quality analyst uncertainty. Please assist us with the question(s) below: Coding Question(s): The diagnosis(es) below was documented in the (quality analyst fill out source document ie H&P, progress notes, etc.) then subsequently fell off all further documentation. Please indicate if it is still a possible diagnosis or ruled out. Physician's Response(s): POSSIBLE SEPSIS (documented then drops off beginning in 07/13 Progress Note) ( ) Diagnosed and POA ( ) Diagnosed and not POA ( x ) Ruled out ( ) Other (please specify) POSSIBLE PYELONEPHRITIS (documented then drops off beginning in 07/13 Progress Note) ( ) Diagnosed and POA ( ) Diagnosed and not POA ( x ) Ruled out ( ) Other (please specify) MTDD
== END 2020-07-14 18:35 | disposition home or self-care (01) | DRG 818 ==
LOC: ED 13:44 → SUATTDRO 16:39 → 3W 16:39 → 2S 07-13 14:36 → 4S1 07-14 00:45

== ENCOUNTER 2020-09-02 20:19 | Inpatient (IN) ==
[2020-09-02] MEDS ORDERED: OXYTOCIN 30 UNITS/500 ML BAG IV PRN (20:26)
[2020-09-02] MEDS ORDERED: LACTATED RINGER'S 1,000 ML IV PRN (20:26)
--- NOTE | 2020-09-02 20:37 | Anesthesiology Consultation ---
Date of Service September 02, 2020 Assessment & Plan (1) Encounter for pre-operative examination: Chart Review Chart Review: Acceptable Risk for Surgery and Patient NOT seen in Pre Admission Testing Consults Requested none History Surgery Operation Date: 09/02/20 21:15 Proposed Procedures p Section in LD(Bilateral) - Ryne Vogel MD Allergies Allergy/AdvReac Type Severity Reaction Status Date / Time No Known Allergies Allergy Verified 08/15/20 11:37 Medications Home Medications Medication Instructions Recorded Confirmed Last Taken Vitamin 800 tab PO DAILY 09/05/19 08/15/20 08/14/20 12:00 Lantus Solostar U-100 Insulin 41 unit SUBCUT HS 07/12/20 08/15/20 08/14/20 21:00 insulin aspart U-100 [Novolog 19 unit SUBCUT .BEFORE DINNER 07/12/20 08/15/20 08/14/20 17:00 Flexpen U-100 Insulin] potassium chloride 20 meq PO DAILY #30 tab 07/14/20 08/15/20 08/14/20 12:00 Past Medical History Medical History Anemia Diabetes mellitus, type II Gestational diabetes Hydronephrosis Hypokalemia Intrauterine Obesity Exercise / Class Metabolic Activity II 4-5 Yardwork/Stairs/Walk up hill Past Family History Family History Other Family history unknown Past Surgical History Surgical History History of Past Anesthesia History No Hx of Anesthesia Complications and No Family Hx of Anesthesia Complications History of PONV No Hx of PONV and No Hx of Motion Sickness Social History Smoking Status: Current every day smoker tobacco type: cigarettes Smoking cigarettes per day: 5 Hx Alcohol Use: No Hx Substance Use: No substance use type: does not use Physical Exam Vital Signs Last Vital Signs Pulse 96 H 09/02/20 20:34 BP 165/79 H 09/02/20 20:34
[2020-09-02 20:44] LABS: Hematocrit (blood only) 37.4 % (37-47); Hemoglobin 13.4 g/dL (12.0-16.0); Mean Corpuscular Hemoglobin 31.3 pg (25-34); Mean Corpuscular Hgb Conc 35.8 g/dL (32-36); Mean Corpuscular Volume 87.4 fL (80-100); Mean Platelet Volume 11.3 fL (7.4-10.4); Platelet Count 200 K/uL (130-400); RDW Coefficient of Variation 13.8 % (11.5-14.5); RDW Standard Deviation 44.1 fL (36.4-46.3); Red Blood Count 4.28 M/uL (4.2-5.4); White Blood Count 18.89 K/uL (4.8-10.8)
[2020-09-02] MEDS ORDERED: ONDANSETRON INJ 2 MG/ML 2 ML VIAL ONE (20:48)
[2020-09-02] MEDS ORDERED: fentaNYL citrate 100 MCG/2 ML VIAL ONE (20:48)
[2020-09-02] MEDS ORDERED: OXYTOCIN 10 UNITS/ML VIAL ONE (20:48)
[2020-09-02] MEDS ORDERED: MoRPHine SULFATE PF 1 MG/ML 10 ML AMP/VIAL ONE (20:48)
--- NOTE | 2020-09-02 20:56 | History & Physical Report ---
Date of Service September 02, 2020 Assessment & Plan (1) delivery indicated due to breech presentation: History of Present Illness 30 F [id number] with prior at 38 weeks presents in active labor and rene breech presentation confirmed by bedside ultrasound. T Cat 1. Consents for repeat obtained. Primary Care Provider: Willie Tamayo Allergies Allergy/AdvReac Type Severity Reaction Status Date / Time No Known Allergies Allergy Verified 08/15/20 11:37 Home Medications Medication Instructions Recorded Confirmed Type Vitamin 800 tab PO DAILY 09/05/19 08/15/20 History Lantus Solostar U-100 Insulin 41 unit SUBCUT HS 07/12/20 08/15/20 History insulin aspart U-100 [Novolog 19 unit SUBCUT .BEFORE DINNER 07/12/20 08/15/20 History Flexpen U-100 Insulin] potassium chloride 20 meq PO DAILY #30 tab 07/14/20 08/15/20 Rx Past Med/Surg History Medical History Anemia Diabetes mellitus, type II Gestational diabetes Hydronephrosis Hypokalemia Intrauterine Obesity Surgical History History of Family History Other Family history unknown Social History Smoking Status: Current every day smoker Tobacco Type: Cigarettes Cigarettes Per Day: 5; Second Hand Exposure: No; Hx Alcohol Use: No Hx Substance Use: No Preferred Language: Micronesian Communication Ability: Effective Refund Clerk Required: No Beliefs That Will Affect Care: None marital status: Current Living Situation: Spouse Feels Safe at Home: Yes Assistive Devices: None Review of Systems Review of Systems: All systems reviewed & are unremarkable except as noted in HPI & below Physical Exam Constitutional: WD/WN, vitals as above + acute distress and + obese Eyes: PERRL, conjunctivae normal, anicteric sclerae ENMT: external ear and nose normal, oropharynx normal Respiratory: normal respiratory effort, lungs clear to auscultation Cardiovascular: RRR, no murmur, no edema Rate/Rhythm: regular rate Chest (Breasts): Chest: normal inspection of chest Gastrointestinal (Abdomen): normal bowel sounds, soft, nontender, no hepatosplenomegaly Inspection/Auscultation: abdomen normal to inspection Neurologic: patellar DTR's 2+ bilat, sensation intact Psychiatric: A+Ox3, euthymic affect Genitourinary: OB Exam Abdomen: + breech OB Exam Monitor Tracing: + external FHT monitor used, + external uterine monitor used and + category I Results & Data Results & Data ([facility]) Vital Signs (Past 12 Hours) Vital Signs Pulse BP 09/02/20 20:34 96 H 165/79 H Code Status & VTE Plan VTE Prophylaxis Plan VTE Prophylaxis will be ordered: No
[2020-09-02] MEDS ORDERED: KETAMINE 50 MG/5 ML SYRINGE ONE (21:25)
[2020-09-02] MEDS ORDERED: MIDAZOLAM HCL 1 MG/ML 2ML VIAL ONE (21:26)
[2020-09-02] MEDS ORDERED: NALOXONE HCL 1 MG in SODIUM CHLORIDE 0.9% 1000ML 1,000 ML IV PRN (21:37)
[2020-09-02] MEDS ORDERED: NALOXONE HCL 0.08 MG in SYRINGE 1.8 ML IV PRN (21:37)
[2020-09-02] MEDS ORDERED: ePHEDrine sulfate 50 MG/ML AMP IV PRN (21:37)
[2020-09-02] MEDS ORDERED: MoRPHine SULFATE 2 MG/ML CARP IV PRN (21:37)
[2020-09-02] MEDS ORDERED: HYDROmorphone INJ 0.5 MG/0.5 ML SYR IV PRN (21:37)
[2020-09-02] MEDS ORDERED: ONDANSETRON INJ 2 MG/ML 2 ML VIAL IV PRN (21:37)
[2020-09-02] MEDS ORDERED: MoRPHine SULFATE PF 1 MG/ML 10 ML AMP/VIAL INT SPINAL ONE (21:37)
[2020-09-02] MEDS ORDERED: NALOXONE HCL 0.4 MG/1 ML VIAL/CARP IV PRN (21:37)
[2020-09-02] MEDS ORDERED: LACTATED RINGER'S 500 ML IV PRN (21:37)
[2020-09-02] MEDS ORDERED: diphenhydrAMINE 50 MG/ML VIAL IV PRN (21:37)
[2020-09-02] MEDS ORDERED: DC INTRASPINAL MORPHINE SCH (21:45)
[2020-09-02] MEDS ORDERED: SODIUM CHLORIDE 0.9% 1000ML 1,000 ML IV SCH (21:45)
[2020-09-02] MEDS ORDERED: NO NARCOTICS OR SEDATIVES SCH (21:45)
--- NOTE | 2020-09-02 22:15 | Post Operative Brief Note ---
Immediate Post Op Note v1 Date of Surgery September 02, 2020 Pre & Post Diagnosis Operation Date: 09/02/20 21:15 <No data on this case meets the specified criteria> I identified the patient and participated in the time-out.: Yes Procedure Operation Date: 09/02/20 21:15 <No data on this case meets the specified criteria> Surgeon Ryne Vogel MD Patient Sitter Dr Villalpando Estimated Blood Loss 600 Findings Consistent with Post-Op Diagnosis live male Apgars 9/9 rene breech Fluids LR 1500 Specimens cord blood placenta Drains Dumont Catheter Anesthesia Type MAC Spinal Regional Complications none Disposition Accompanied Patient To Recovery: Yes Disposition: L&D Overlapping Procedure I was present for: the critical portions of procedure. I was immediately available: during the entire case. Back up surgeon: used during listed procedure.
[2020-09-02] MEDS ORDERED: BENZOCAINE 20% AER SPR 82.5 GM CAN EXT PRN (22:28)
[2020-09-02] MEDS ORDERED: SENNA 8.6 MG TAB PO PRN (22:28)
[2020-09-02] MEDS ORDERED: MAGNESIUM HYDROXIDE SUSP 30 ML UDC PO PRN (22:28)
[2020-09-02] MEDS ORDERED: LACTATED RINGER'S 1,000 ML IV SCH (22:28)
[2020-09-02] MEDS ORDERED: HYDROCORTISONE ACETATE 25 MG SUPP PR PRN (22:28)
[2020-09-02] MEDS ORDERED: DIPHTHERIA/TETANUS/PERTUSSIS 0.5 ML SYR/VIAL IM ONE (22:28)
[2020-09-02] MEDS ORDERED: SUPERCREAM 0.870% 15 GM JAR EXT PRN (22:28)
--- NOTE | 2020-09-02 22:35 | Anesthesiology Progress Note ---
Date of Service September 02, 2020 Anesthesia Post Procedure Vital Signs Vital Signs: Temp Pulse Resp BP Pulse Ox 09/02/20 22:30 77 99 09/02/20 22:25 83 123/78 100 09/02/20 21:42 36.9 C 20 09/02/20 20:35 36.9 C 20 09/02/20 20:34 96 H 165/79 H Transfer of Care Handoff Completed per policy Notes Mental Status: alert / awake / arousable and participated in evaluation Patient Amnestic to Procedure: No Nausea / Vomiting: adequately controlled Pain: adequately controlled Airway Patency, RR, SpO2: stable & adequate BP & HR: stable & adequate Hydration State: stable & adequate Neuraxial Anesthesia: was administered and sensory block is resolving Anesthetic Complications: no major complications apparent and Pt Satisfied with anesthetic care
[2020-09-02] MEDS: KETOROLAC 30 MG/ML VIAL IV PRN (22:52)
[2020-09-02] MEDS: OXYTOCIN 20 UNITS in LACTATED RINGER'S 1,000 ML IV SCH (23:26)
--- NOTE | 2020-09-03 00:32 | Operative Report (OR) ---
DATE OF OPERATION: 09/02/2020 PREOPERATIVE DIAGNOSIS: Breech with repeat section, in labor. POSTOPERATIVE DIAGNOSIS: Breech with repeat section, in labor. PROCEDURE: Repeat section, low segment, transverse. SURGEON: Ryne Vogel MD BLEACHER LARD: Ty Villalpando MD ANESTHESIA: Spinal with Duramorph and MAC anesthesia. COMPLICATIONS: None. FINDINGS: Live male, Apgars 9 and 9, weight 7 pounds, rene breech. BLOOD LOSS: EBL 1500 mL, total blood loss 600 mL. DESCRIPTION OF PROCEDURE: Under satisfactory spinal anesthesia, the patient was prepped and draped in the usual sterile fashion. Timeout was called. Two grams of Ancef were given prior to the start of the surgery. A low Pfannenstiel incision through a prior scar was then used, carrying the incision down into the abdominal layer in successive layers without difficulty. Upon entering into the lower uterine segment, pickups with teeth were then used to develop a bladder flap. This was then sharply dissected down. A low segment transverse incision over the lower uterine segment was made. The incision was widened in the transverse diameter. Amniotic sac was ruptured and found to be clear. The infant was then delivered from the rene breech presentation without difficulty delivering a live male. Apgars were 9 and 9, weight 7 pounds. After the cord was doubly clamped and cut, cord blood was obtained. Baby was handed to the adaptive physical education teacher. Placenta was then delivered spontaneously and intact. Uterus was then exteriorized. Ring forceps were then placed on both angles in the inferior margin. Uterus was closed in a double layer closure with 0 Vicryl suture in a continuous interlocking fashion followed by a second imbricating layer. The contents of the pelvic cavity were irrigated. Both tubes and ovaries bilaterally were found to be within normal limits. Lower uterine segment was inspected. The initial sponge, needle, and instrument counts were found to be correct. After the uterus was placed back into the abdominal cavity in the normal anatomical position, the fascia was then reapproximated from both ends using 0 Vicryl suture. Subcuticular space was irrigated. Bleeders were cauterized. The subcuticular space was closed with 3-0 plain suture. This layer was then irrigated once more and the skin was then reapproximated with nathalia. Telfa and sponge dressing were then applied. Clear urine was noted. EBL 600 mL. Total fluids 1500 mL. The final sponge, needle and instrument count were found to be correct. The patient was then placed supine on a stretcher and moved to recovery room in stable condition. Please note as an addendum, Dr. Villalpando was used as the title i instructional assistant for retraction, assisting at delivery for pushing out the baby, and for suctioning and exposure and help with closures, tying sutures, and performing the closure of the uterus on his side. I attest to the content of the Intraoperative Record and any orders documented therein. Any exception s are noted below.
[2020-09-03 06:25] LABS: Eosinophils # (auto) 0.02 K/uL (0-0.5); Eosinophils % (auto) 0.1 %; Hematocrit (blood only) 29.7 % (37-47); Hemoglobin 10.2 g/dL (12.0-16.0); Immature Granulocytes # (auto) 0.05 K/uL (0.00-0.02); Immature Granulocytes % (auto) 0.3 %; Lymphocytes # (auto) 2.92 K/uL (1.2-3.4); Lymphocytes % (auto) 17.9 %; Mean Corpuscular Hemoglobin 30.7 pg (25-34); Mean Corpuscular Hgb Conc 34.3 g/dL (32-36); Mean Corpuscular Volume 89.5 fL (80-100); Mean Platelet Volume 11.3 fL (7.4-10.4); Monocytes # (auto) 0.92 K/uL (0.11-0.59); Monocytes % (auto) 5.6 %; Neutrophils # (auto) 12.39 K/uL (1.4-6.5); Neutrophils % (auto) 76.1 %; Platelet Count 166 K/uL (130-400); RDW Coefficient of Variation 13.8 % (11.5-14.5); Red Blood Count 3.32 M/uL (4.2-5.4)
[2020-09-03] MEDS: OXYTOCIN 20 UNITS in LACTATED RINGER'S 1,000 ML IV SCH (08:06)
--- NOTE | 2020-09-03 08:46 | Obstetrical Progress Note ---
Date of Service September 03, 2020 Assessment & Plan Admission and Anticipated Discharge Date Admission Date: September 02, 2020 Subjective Patient is seen and examined. She feels well, no complaints. No Pain. Not OOB yet Voiding without difficulty Tolerating clear with out N&V Flatus neg] Bleeding is minimal No fever/ chills/ CP/ SOB/ N&V/ Leg pain Breast feeding without problems Vital Signs Temp Pulse Pulse Resp BP BP Pulse Ox 09/03/20 07:41 36.7 C 75 18 117/75 97 09/03/20 05:57 16 94 09/03/20 04:50 36.9 C 63 16 104/59 L 98 09/03/20 04:05 16 91 09/03/20 03:39 17 94 09/03/20 02:23 16 96 09/03/20 01:00 36.8 C 64 16 116/65 98 09/03/20 00:30 81 96 09/03/20 00:25 71 20 117/63 97 09/03/20 00:20 77 97 09/03/20 00:15 68 120/65 97 09/03/20 00:10 78 97 09/03/20 00:05 63 113/62 97 09/03/20 00:00 71 97 09/02/20 23:55 64 18 117/63 97 09/02/20 23:50 79 97 09/02/20 23:45 72 130/70 97 09/02/20 23:40 84 96 09/02/20 23:35 68 121/59 L 97 09/02/20 23:30 82 96 09/02/20 23:25 82 20 128/69 98 09/02/20 23:20 88 98 09/02/20 23:15 65 18 131/64 98 09/02/20 23:10 69 98 09/02/20 23:05 86 20 130/68 98 09/02/20 23:00 80 98 09/02/20 22:55 69 18 136/69 99 09/02/20 22:50 91 H 97 09/02/20 22:46 82 130/81 09/02/20 22:45 80 18 99 09/02/20 22:40 78 98 09/02/20 22:36 80 133/65 09/02/20 22:35 82 98 09/02/20 22:30 77 99 09/02/20 22:25 36.6 C 83 18 123/78 100 09/02/20 21:42 36.9 C 20 Intake & Output 09/02/20 09/03/20 09/03/20 22:59 06:59 14:59 Intake Total 1500 / 3000 1500 / 3000 1002 / 1002 Output Total 100 / 800 700 / 800 Balance 1400 / 2200 800 / 2200 1002 / 1002 Weight 89.358 kg Intake: IV 1000 / 1000 1002 / 1002 Lactated Ringer's 1,000 ml @ 1000 / 1000 125 mls/hr IV .Q8H PRN Rx#: [id number] Oxytocin 20 units In Lactated 1002 / 1002 Ringer's 1,000 ml @ 125 mls/hr IV .Q8H1M VÍCTOR Rx#:[id number] IV Perioperative 1500 / 1500 Oral 500 / 500 Output: Urine Amount (Catheter) 100 / 800 700 / 800 Dumont/Indwelling 100 / 800 700 / 800 Other: Weight Measurement Method Last Office Visit PE: General: Alert, orientedx3, NAD CVS: S1S2 RRR Lungs; CTAB Abd: soft, NT, ND, BS+, fundus firm, below Umbilicus Incision/ Dressing: Clean, dry, intact Perineum intact, Lochia rubra minimal Ext; NT, no edema, SCD's on AP: 30 yo s/p C Section, pod# 1 VSS Afebrile doing well Continue routine postop care Encourage ambulation, PO intake All questions were answered Results & Data ([facility] [place]) Vital Signs (Past 12 Hours) Vital Signs Temp Pulse Pulse Resp BP BP Pulse Ox 09/03/20 07:41 36.7 C 75 18 117/75 97 09/03/20 05:57 16 94 09/03/20 04:50 36.9 C 63 16 104/59 L 98 09/03/20 04:05 16 91 09/03/20 03:39 17 94 09/03/20 02:23 16 96 09/03/20 01:00 36.8 C 64 16 116/65 98 09/03/20 00:30 81 96 09/03/20 00:25 71 20 117/63 97 09/03/20 00:20 77 97 09/03/20 00:15 68 120/65 97 09/03/20 00:10 78 97 09/03/20 00:05 63 113/62 97 09/03/20 00:00 71 97 09/02/20 23:55 64 18 117/63 97 09/02/20 23:50 79 97 09/02/20 23:45 72 130/70 97 09/02/20 23:40 84 96 09/02/20 23:35 68 121/59 L 97 09/02/20 23:30 82 96 09/02/20 23:25 82 20 128/69 98 09/02/20 23:20 88 98 09/02/20 23:15 65 18 131/64 98 09/02/20 23:10 69 98 09/02/20 23:05 86 20 130/68 98 09/02/20 23:00 80 98 09/02/20 22:55 69 18 136/69 99 09/02/20 22:50 91 H 97 09/02/20 22:46 82 130/81 09/02/20 22:45 80 18 99 09/02/20 22:40 78 98 09/02/20 22:36 80 133/65 09/02/20 22:35 82 98 09/02/20 22:30 77 99 09/02/20 22:25 36.6 C 83 18 123/78 100 09/02/20 21:42 36.9 C 20
[2020-09-03] MEDS: PRENATAL VITAMIN 1 TAB PO SCH (08:48)
[2020-09-03] MEDS: DOCUSATE SODIUM 100 MG CAP PO SCH ×2 (08:48→20:36)
[2020-09-03] MEDS: FERROUS SULFATE 325 MG TAB PO SCH (08:48)
[2020-09-03] MEDS: SIMETHICONE 80 MG CHEW PO SCH ×4 (08:48→20:35)
[2020-09-03] MEDS ORDERED: PRENATAL VITAMIN 1 TAB PO SCH (09:00)
[2020-09-03] MEDS: KETOROLAC 30 MG/ML VIAL IV PRN (13:45)
[2020-09-03] MEDS ORDERED: diphenhydrAMINE Capsule 25 MG CAP PO PRN (15:37)
[2020-09-03] MEDS ORDERED: KETOROLAC 30 MG/ML VIAL IV PRN (15:37)
[2020-09-03] MEDS ORDERED: PROMETHAZINE HCL 25 MG in SODIUM CHLORIDE 0.9% 50 ML IV PRN (15:37)
[2020-09-03] MEDS ORDERED: diphenhydrAMINE 50 MG/ML VIAL IV PRN (15:37)
[2020-09-03] MEDS ORDERED: MEPERIDINE HCL 50 MG/ML CARP IV PRN (15:37)
[2020-09-03] MEDS ORDERED: ONDANSETRON INJ 2 MG/ML 2 ML VIAL IV PRN (15:37)
[2020-09-03] MEDS: POTASSIUM CHLORIDE CRTAB 20 MEQ TABCR PO SCH (18:01)
[2020-09-03] MEDS ORDERED: bisacodyL 5 MG TABEC PO SCH (20:00)
[2020-09-03] MEDS: IBUPROFEN 600 MG TAB PO PRN (23:30)
[2020-09-04] MEDS: oxyCODONE/ACETAMINOPHEN 5mg/325mg TAB PO PRN ×2 (01:32→20:36)
[2020-09-04 06:31] LABS: Hematocrit (blood only) 28.6 % (37-47); Hemoglobin 9.8 g/dL (12.0-16.0)
[2020-09-04] MEDS: PRENATAL VITAMIN 1 TAB PO SCH (08:36)
[2020-09-04] MEDS: DOCUSATE SODIUM 100 MG CAP PO SCH ×2 (08:36→20:36)
[2020-09-04] MEDS: IBUPROFEN 600 MG TAB PO PRN ×2 (08:36→20:35)
[2020-09-04] MEDS: FERROUS SULFATE 325 MG TAB PO SCH (08:36)
[2020-09-04] MEDS: SIMETHICONE 80 MG CHEW PO SCH ×4 (08:36→20:35)
[2020-09-04] MEDS: POTASSIUM CHLORIDE CRTAB 20 MEQ TABCR PO SCH (09:52)
--- NOTE | 2020-09-04 10:20 | Surgery Progress Note ---
Date of Service September 04, 2020 Assessment & Plan Admission and Anticipated Discharge Date Admission Date: September 02, 2020 Subjective POD#2 doing well passing gas out of bed tolerating diet Physical Exam Constitutional: WD/WN, vitals as above well developed and comfortable abdomen soft and non-tender incision c/d/i no edema neg Rhina's tent d/c in AM Results & Data ([facility]) Vital Signs (Past 12 Hours) Vital Signs Temp Pulse Resp BP Pulse Ox 09/04/20 08:00 36.8 C 74 18 114/71 97 09/03/20 23:30 16 09/03/20 22:52 36.6 C 76 16 120/76 97 Diagnostic Findings Laboratory Results - last 72 hr 09/02/20 09/02/20 09/02/20 20:30 20:30 20:36 WBC RBC Hgb Hct MCV MCH MCHC RDW Std Deviation RDW Coeff of Maureen Plt Count MPV Immature Gran % (Auto) Neut % (Auto) Lymph % (Auto) [place] % (Auto) Eos % (Auto) Baso % (Auto) Neut # (Auto) Lymph # (Auto) [place] # (Auto) Eos # (Auto) Baso # (Auto) Immature Gran # (Auto) COVID-19 Eval Order Covid19 IDNow [facility] SARS-CoV-2, RNA, NAAT NEGATIVE Blood Type O Positive Antibody Screen NEGATIVE 09/02/20 09/03/20 09/04/20 20:36 06:06 06:07 WBC 18.89 H 16.30 H RBC 4.28 3.32 L Hgb 13.4 10.2 L D 9.8 L Hct 37.4 29.7 L 28.6 L MCV 87.4 89.5 MCH 31.3 30.7 MCHC 35.8 34.3 RDW Std Deviation 44.1 45.0 RDW Coeff of Maureen 13.8 13.8 Plt Count 200 166 MPV 11.3 H 11.3 H Immature Gran % (Auto) 0.3 Neut % (Auto) 76.1 Lymph % (Auto) 17.9 [place] % (Auto) 5.6 Eos % (Auto) 0.1 Baso % (Auto) 0.0 Neut # (Auto) 12.39 H Lymph # (Auto) 2.92 [place] # (Auto) 0.92 H Eos # (Auto) 0.02 Baso # (Auto) 0.00 Immature Gran # (Auto) 0.05 H COVID-19 Eval Order SARS-CoV-2, RNA, NAAT Blood Type Antibody Screen
[2020-09-04] MEDS ORDERED: bisacodyL 10 MG SUPP PR PRN (22:11)
[2020-09-05] MEDS: SIMETHICONE 80 MG CHEW PO SCH ×2 (08:37→12:25)
[2020-09-05] MEDS: DOCUSATE SODIUM 100 MG CAP PO SCH (08:37)
[2020-09-05] MEDS: PRENATAL VITAMIN 1 TAB PO SCH (08:37)
[2020-09-05] MEDS: FERROUS SULFATE 325 MG TAB PO SCH (08:40)
[2020-09-05 10:04] LABS: Basophils # (auto) 0.01 K/uL (0-0.2); Basophils % (auto) 0.1 %; Eosinophils # (auto) 0.25 K/uL (0-0.5); Eosinophils % (auto) 2.3 %; Hematocrit (blood only) 28.3 % (37-47); Hemoglobin 9.6 g/dL (12.0-16.0); Immature Granulocytes # (auto) 0.08 K/uL (0.00-0.02); Immature Granulocytes % (auto) 0.7 %; Lymphocytes % (auto) 20.4 %; Mean Corpuscular Hemoglobin 30.5 pg (25-34); Mean Corpuscular Hgb Conc 33.9 g/dL (32-36); Mean Corpuscular Volume 89.8 fL (80-100); Monocytes # (auto) 0.56 K/uL (0.11-0.59); Monocytes % (auto) 5.2 %; Neutrophils # (auto) 7.68 K/uL (1.4-6.5); Neutrophils % (auto) 71.3 %; Platelet Count 180 K/uL (130-400); RDW Coefficient of Variation 14.1 % (11.5-14.5); RDW Standard Deviation 46.1 fL (36.4-46.3); Red Blood Count 3.15 M/uL (4.2-5.4); White Blood Count 10.78 K/uL (4.8-10.8)
--- NOTE | 2020-09-05 10:25 | Obstetrical Progress Note ---
Date of Service September 05, 2020 Assessment & Plan Admission and Anticipated Discharge Date Admission Date: September 02, 2020 Subjective Patient is seen and examined. She feels well, no complaints. Pain is under control with oral meds. Ambulating without dizziness Voiding without difficulty Tolerating regular diet with out N&V Flatus + BM + Bleeding is minimal No fever/ chills/ CP/ SOB/ N&V/ Leg pain Breast feeding without problems Vital Signs Temp Pulse Resp BP Pulse Ox 09/05/20 07:19 36.8 C 76 18 121/81 97 09/04/20 23:16 36.7 C 66 18 113/74 98 Vital Signs Temp Pulse Resp BP Pulse Ox 09/05/20 07:19 36.8 C 76 18 121/81 97 09/04/20 23:16 36.7 C 66 18 113/74 98 09/04/20 20:10 37 C 89 16 129/81 09/04/20 15:10 36.7 C 86 18 118/78 98 Lab Results 09/02/20 09/02/20 09/02/20 Range/Units 20:30 20:30 20:36 WBC (4.8-10.8) K/uL RBC (4.2-5.4) M/uL Hgb (12.0-16.0) g/dL Hct (37-47) % MCV (80-100) fL MCH (25-34) pg MCHC (32-36) g/dL RDW Std Deviation (36.4-46.3) fL RDW Coeff of Maureen (11.5-14.5) % Plt Count (130-400) K/uL MPV (7.4-10.4) fL Immature Gran % (Auto) % Neut % (Auto) % Lymph % (Auto) % [place] % (Auto) % Eos % (Auto) % Baso % (Auto) % Neut # (Auto) (1.4-6.5) K/uL Lymph # (Auto) (1.2-3.4) K/uL [place] # (Auto) (0.11-0.59) K/uL Eos # (Auto) (0-0.5) K/uL Baso # (Auto) (0-0.2) K/uL Immature Gran # (Auto) (0.00-0.02) K/uL COVID-19 Eval Order Covid19 [facility]Now [facility] SARS-CoV-2, RNA, NAAT NEGATIVE (NEGATIVE) Blood Type O Positive Antibody Screen NEGATIVE 09/02/20 09/03/20 09/04/20 Range/Units 20:36 06:06 06:07 WBC 18.89 H 16.30 H (4.8-10.8) K/uL RBC 4.28 3.32 L (4.2-5.4) M/uL Hgb 13.4 10.2 L D 9.8 L (12.0-16.0) g/dL Hct 37.4 29.7 L 28.6 L (37-47) % MCV 87.4 89.5 (80-100) fL MCH 31.3 30.7 (25-34) pg MCHC 35.8 34.3 (32-36) g/dL RDW Std Deviation 44.1 45.0 (36.4-46.3) fL RDW Coeff of Maureen 13.8 13.8 (11.5-14.5) % Plt Count 200 166 (130-400) K/uL MPV 11.3 H 11.3 H (7.4-10.4) fL Immature Gran % (Auto) 0.3 % Neut % (Auto) 76.1 % Lymph % (Auto) 17.9 % [place] % (Auto) 5.6 % Eos % (Auto) 0.1 % Baso % (Auto) 0.0 % Neut # (Auto) 12.39 H (1.4-6.5) K/uL Lymph # (Auto) 2.92 (1.2-3.4) K/uL [place] # (Auto) 0.92 H (0.11-0.59) K/uL Eos # (Auto) 0.02 (0-0.5) K/uL Baso # (Auto) 0.00 (0-0.2) K/uL Immature Gran # (Auto) 0.05 H (0.00-0.02) K/uL COVID-19 Eval Order SARS-CoV-2, RNA, NAAT (NEGATIVE) Blood Type Antibody Screen 09/05/20 Range/Units 09:50 WBC 10.78 (4.8-10.8) K/uL RBC 3.15 L (4.2-5.4) M/uL Hgb 9.6 L (12.0-16.0) g/dL Hct 28.3 L (37-47) % MCV 89.8 (80-100) fL MCH 30.5 (25-34) pg MCHC 33.9 (32-36) g/dL RDW Std Deviation 46.1 (36.4-46.3) fL RDW Coeff of Maureen 14.1 (11.5-14.5) % Plt Count 180 (130-400) K/uL MPV 11.0 H (7.4-10.4) fL Immature Gran % (Auto) 0.7 % Neut % (Auto) 71.3 % Lymph % (Auto) 20.4 % [place] % (Auto) 5.2 % Eos % (Auto) 2.3 % Baso % (Auto) 0.1 % Neut # (Auto) 7.68 H (1.4-6.5) K/uL Lymph # (Auto) 2.20 (1.2-3.4) K/uL [place] # (Auto) 0.56 (0.11-0.59) K/uL Eos # (Auto) 0.25 (0-0.5) K/uL Baso # (Auto) 0.01 (0-0.2) K/uL Immature Gran # (Auto) 0.08 H (0.00-0.02) K/uL COVID-19 Eval Order SARS-CoV-2, RNA, NAAT (NEGATIVE) Blood Type Antibody Screen PE: General: Alert, orientedx3, NAD CVS: S1S2 RRR Lungs; CTAB Abd: soft, NT, ND, BS+, fundus firm, below Umbilicus Incision: Clean, dry, intact Perineum intact, Lochia rubra minimal Ext; NT, no edema AP: 30 yo s/p C Section, pod# 3 VSS Afebrile doing well Continue routine postop care Encourage ambulation, PO intake All questions were answered Discussed when to call D/C home , f/u in office Results & Data ([facility]) Vital Signs (Past 12 Hours) Vital Signs Temp Pulse Resp BP Pulse Ox 09/05/20 07:19 36.8 C 76 18 121/81 97 09/04/20 23:16 36.7 C 66 18 113/74 98
[2020-09-05] MEDS: oxyCODONE/ACETAMINOPHEN 5mg/325mg TAB PO PRN (12:25)
[2020-09-05] MEDS: POTASSIUM CHLORIDE CRTAB 20 MEQ TABCR PO SCH (12:25)
--- NOTE | 2020-09-11 11:26 | Discharge Summary (DS) ---
REASON FOR ADMISSION AND HOSPITAL COURSE: The patient is a 30-year-old female, found to be in the rene breech presentation. She has a repeat who was trying to attempt a . She was found breech and a section was planned. Delivery was uncomplicated under spinal anesthesia, delivering a live , Apgars were 9 and 9, weight was 7 pounds. Hospital course was unremarkable. Condition on discharge was stable. Regular diet on discharge. Medications, Percocet and Motrin, and follow up in the office in 1 week for an incision check.
--- NOTE | 2020-09-12 13:48 | Coding Query ---
CODING QUERY To promote full compliance with coding requirements relating to patient care, provider participation is requested in all cases of spiral binder uncertainty. Please assist us with the question(s) below: Coding Question(s): The H&P documents under past history, Gestational Diabetes and also documents Diabetes Mellitus, Type 2. Please clarify below, regarding Diabetes diagnosis. (x ) Gestational Diabetes ( ) Pre-existing Diabetes Type 2 ( ) No Diabetes ( ) Other: Please Specify Physician's Response(s): Thank you Courtney Gordillo Principal Diagnosis: "that condition established after study, to be chiefly responsible for occasioning the admission of the patient to the hospital for care." Co-Existing Principal Diagnosis: "when two or more diagnoses equally meet the criteria for principal diagnosis as determined by the circumstances of admission, diagnostic work up, and/or therapy provided, and the Alphabetic Index, Tabular List, or another coding guideline does not provide sequencing direction, any one of the diagnoses may be sequenced first." "When the physician has documented what appears to be a current diagnosis in the body of the record, but has not included the diagnosis in the final diagnostic statement, the physician should be asked whether the diagnosis should be added." (Source [facility] 2 QTR90. p3-4) TE
== END 2020-09-05 13:25 | disposition home or self-care (01) | DRG 788 ==
LOC: OPB 20:19 → 4S1 20:21 → 4S2 09-03 00:59